=== PATIENT | female | born 1980 | race Caucasian/White ===

== ENCOUNTER 2020-12-14 09:39 | Inpatient (IN) ==
--- NOTE | 2020-12-14 10:03 | Emergency Department Note ---
Impression & Plan Acute hypoxemic respiratory failure, CHF (congestive heart failure), Down syndrome, Pulmonary HTN, KIRTI (acute kidney injury), Acute urinary retention ED Provider Note NAME: SUNDAR MATTHEWS AGE: 40 SEX: F : 1980 ARRIVES VIA: Walk-In INFORMANT: Patient, ED PROVIDER(S): Naun Winn MD Chief Complaint: Shortness of breath HPI: Patient does present with the patient's father due to concern for shortness of breath. The patient does have a known history of Down syndrome, CHF and pulmonary hypertension. She does follow with the internal control specialist at [facility] Dr.'s Gomez as well as Dr. Del Valle with [facility]. The patient has had an unproductive cough but it seems to be Oneal where she cannot bring it up. The patient has been increasing her oxygen from just at nighttime to 3 L almost at all times. Increasingly exertional dyspnea. The patient has been compliant with medications. Patient does have prior history of aspiration pneumonia. Patient symptoms of gotten progressively worse are relatively constant and even present at rest but worse with activity. ROS: See HPI for pertinent positives and negatives. A total of 10 systems were reviewed and otherwise negative. Past medical history: See below Surgical history: See below Social history: See below Physical Exam: GENERAL: Wearing glasses, nasal cannula in place, mildly ill in appearance. EYE EXAM: Normal conjunctiva. PERRL, no anisocoria and EOM's grossly intact w/o pain. NECK: Supple, no nuchal rigidity, no adenopathy, non-tender. No signs of meningismus. LUNGS: Bibasilar crackles. Tachypnea noted. HEART: NSR, no MRG. ABDOMEN: Abdomen soft, non-tender, normo-active bowel sounds, no masses, no rebound or guarding. BACK: No CVA TTP. SKIN: No rashes and no bruising. UPPER EXTREMITIES: Upper extremities are grossly normal. LOWER EXTREMITIES: Grossly normal, no edema. Negative Homans' sign bilaterally NEURO EXAM: A&O x3, cranial nerves II-XII grossly intact, normal speech, moves all 4 extremities on command w/o issue. Differential diagnoses: Reactive airway disease, pneumonia, pneumothorax, COPD, CHF, infections, cardiac ischemia, pulmonary embolism, musculoskeletal, gastrointestinal, as well as other pathologies. Course: Patient was seen and evaluated the bedside. Full history physical exam was performed. EKG interpreted by me Normal sinus rhythm, rate of 85, normal intervals, right axis deviation, n onspecific T wave abnormality without significant change from comparison EKG July 12, 2018 Imaging Studies: See below Cardiac monitoring: An order was placed for continuous cardiac monitoring. The monitor shows a rate of 66 with sinus rhythm. MDM: Patient was seen due to concern for shortness of breath. Blood work was obtained along with Zosyn ordered, MRSA swab and cultures. The patient was placed on BiPAP as I believe that this will improve with the patient's respiratory effort. Per the father the patient is on chronic oxygen but runs anywhere from the mid 80s to low 90s. Patient has had increase in her oxygen use. Patient's daughter shows a mild white count mild anemia at 1111.3 respectively. The patient's kidney function is grossly changed from prior with KIRTI from baseline creat less than 1. Today is 2.3. Chest x-ray does show concern for possible volume overload. VBG does not show any hypercarbia. I did further discuss that patient with the father stated that she does suffer from urinary retention. Bladder scan was ordered and the patient is greater than 1 L of retention. Given that this may be the cause of the KIRTI I did recommend that a Bernal be placed. I did speak with the patient's primary pulmonology specialist at [facility], Dr. Garrett, who did recommend continuing her current tadalafil and macitentan therapy. He also recommended a BNP and an echocard iogram. I did discuss this with the on-call hospitalist HARINDER Barrios and the patient was admitted by Dr. Mcclellan. Patient does seem to have improved on the BiPAP. I did rediscuss the findings with the patient's family at bedside who is in agreement with plan of care. Critical Care: I have personally spent 77 minutes of critical care time in direct management of this patient. This includes bedside care, interpretation of diagnostic studies, and testing, discussion with consultants, patient, and family members, and other require inpatient management activities. This 77 minutes is in excess of all separately billable procedures. Past Med/Surg History Medical History Aspiration pneumonia Down syndrome Pulmonary HTN Surgical History History of heart surgery 1982: pulmonary artery banding and right lower lobectomy 1984: AVSD repair Family History Other Family history non-contributory Social History Smoking Status: Never smoker Hx Alcohol Use: No Hx Substance Use: No Preferred Language: Irish Communication Ability: Effective Molder Sweep Required: No Beliefs That Will Affect Care: None Current Living Situation: Parent Feels Safe at Home: Yes Assistive Devices: Oxygen - Continuous Allergies Allergies Allergy/AdvReac Type Severity Reaction Status Date / Time Sulfa (Sulfonamide Allergy Unknown ` Verified 12/14/20 11:24 Antibiotics) Home Meds Home Medications Medication Instructions Recorded Confirmed multivitamin 1 tab PO QAM 07/10/18 12/14/20 fluticasone propionate [Flovent 1 inh INHALATION BID 12/14/20 12/14/20 Diskus] macitentan [Opsumit] 10 mg PO PM 12/14/20 12/14/20 omeprazole 20 mg PO PM 12/14/20 12/14/20 tadalafil (pulm. hypertension) 40 mg PO QAM 12/14/20 12/14/20 Previous Rx's Medication Instructions Recorded acetaminophen 650 mg PO Q4H PRN #100 cap 07/14/18 albuterol sulfate 2 puffs INH Q6H PRN #8 gm 07/14/18 Results & Data (ED) Vital Signs Vital Signs - 24 hr 12/14/20 09:41 12/14/20 10:00 12/14/20 10:20 Temperature 36.7 C Temperature Source Temporal Artery Scan Pulse Rate 102 H Pulse Rate from SpO2 Sensor Respiratory Rate 20 Respiratory Effort / Characteristics Non-Labored Spontaneous Labored Short of Breath Blood Pressure 140/83 Blood Pressure Mean 102 Pulse Oximetry 86 L 85 L 94 Oxygen Delivery Method Nasal Cannula Nasal Cannula Oxygen Flow Rate 2 4.5 Fraction of Inspired Oxygen Sepsis Recent Fever Within 48 Hours No Sepsis New/Unexplained Change in Mental Status N/A Sepsis Action Taken by Nursing No Action Required Oxygen Flow Rate - Titration 4.5 Pulse Oximetry Post Tiitration 94 12/14/20 10:34 12/14/20 10:48 12/14/20 11:00 Temperature Temperature Source Pulse Rate 88 86 Pulse Rate from SpO2 Sensor 86 Respiratory Rate 34 H 24 Respiratory Effort / Characteristics Labored Spontaneous Blood Pressure Blood Pressure Mean Pulse Oximetry 89 L 93 91 Oxygen Delivery Method Nasal Cannula BiPAP Oxygen Flow Rate 3 Fraction of Inspired Oxygen 30 Sepsis Recent Fever Within 48 Hours Sepsis New/Unexplained Change in Mental Status Sepsis Action Taken by Nursing Oxygen Flow Rate - Titration Pulse Oximetry Post Tiitration 12/14/20 11:10 12/14/20 11:20 12/14/20 11:30 Temperature Temperature Source Pulse Rate 72 72 77 Pulse Rate from SpO2 Sensor 73 72 77 Respiratory Rate 22 20 24 Respiratory Effort / Characteristics Blood Pressure Blood Pressure Mean Pulse Oximetry 90 91 93 Oxygen Delivery Method BiPAP BiPAP BiPAP Oxygen Flow Rate Fraction of Inspired Oxygen Sepsis Recent Fever Within 48 Hours Sepsis New/Unexplained Change in Mental Status Sepsis Action Taken by Nursing Oxygen Flow Rate - Titration Pulse Oximetry Post Tiitration 12/14/20 11:31 12/14/20 11:40 12/14/20 11:50 Temperature Temperature Source Pulse Rate 73 77 70 Pulse Rate from SpO2 Sensor 72 76 69 Respiratory Rate 24 22 21 Respiratory Effort / Characteristics Blood Pressure 131/72 Blood Pressure Mean 91 Pulse Oximetry 91 93 90 Oxygen Delivery Method BiPAP BiPAP BiPAP Oxygen Flow Rate Fraction of Inspired Oxygen Sepsis Recent Fever Within 48 Hours Sepsis New/Unexplained Change in Mental Status Sepsis Action Taken by Nursing Oxygen Flow Rate - Titration Pulse Oximetry Post Tiitration 12/14/20 12:00 12/14/20 12:01 12/14/20 12:10 Temperature Temperature Source Pulse Rate 72 69 70 Pulse Rate from SpO2 Sensor 72 68 69 Respiratory Rate 22 22 20 Respiratory Effort / Characteristics Blood Pressure 118/92 Blood Pressure Mean 100 Pulse Oximetry 91 91 93 Oxygen Delivery Method BiPAP BiPAP BiPAP Oxygen Flow Rate Fraction of Inspired Oxygen Sepsis Recent Fever Within 48 Hours Sepsis New/Unexplained Change in Mental Status Sepsis Action Taken by Nursing Oxygen Flow Rate - Titration Pulse Oximetry Post Tiitration 12/14/20 12:20 12/14/20 12:30 12/14/20 12:32 Temperature Temperature Source Pulse Rate 75 70 64 Pulse Rate from SpO2 Sensor 73 69 65 Respiratory Rate 24 18 18 Respiratory Effort / Characteristics Blood Pressure 142/83 H Blood Pressure Mean 102 Pulse Oximetry 93 94 91 Oxygen Delivery Method BiPAP BiPAP BiPAP Oxygen Flow Rate Fraction of Inspired Oxygen Sepsis Recent Fever Within 48 Hours Sepsis New/Unexplained Change in Mental Status Sepsis Action Taken by Nursing Oxygen Flow Rate - Titration Pulse Oximetry Post Tiitration 12/14/20 12:40 12/14/20 12:50 12/14/20 13:00 Temperature Temperature Source Pulse Rate 61 65 76 Pulse Rate from SpO2 Sensor 62 65 75 Respiratory Rate 18 22 19 Respiratory Effort / Characteristics Blood Pressure Blood Pressure Mean Pulse Oximetry 92 91 92 Oxygen Delivery Method BiPAP BiPAP BiPAP Oxygen Flow Rate Fraction of Inspired Oxygen Sepsis Recent Fever Within 48 Hours Sepsis New/Unexplained Change in Mental Status Sepsis Action Taken by Nursing Oxygen Flow Rate - Titration Pulse Oximetry Post Tiitration 12/14/20 13:01 12/14/20 13:12 12/14/20 13:20 Temperature Temperature Source Pulse Rate 78 93 H Pulse Rate from SpO2 Sensor 79 109 H 88 Respiratory Rate 22 24 Respiratory Effort / Characteristics Blood Pressure 107/70 Blood Pressure Mean 82 Pulse Oximetry 93 90 91 Oxygen Delivery Method BiPAP BiPAP BiPAP Oxygen Flow Rate Fraction of Inspired Oxygen Sepsis Recent Fever Within 48 Hours Sepsis New/Unexplained Change in Mental Status Sepsis Action Taken by Nursing Oxygen Flow Rate - Titration Pulse Oximetry Post Tiitration 12/14/20 13:30 12/14/20 13:31 12/14/20 13:40 Temperature Temperature Source Pulse Rate 82 83 79 Pulse Rate from SpO2 Sensor 82 84 80 Respiratory Rate 26 H 24 22 Respiratory Effort / Characteristics Blood Pressure 126/99 Blood Pressure Mean 108 Pulse Oximetry 96 95 95 Oxygen Delivery Method BiPAP BiPAP BiPAP Oxygen Flow Rate Fraction of Inspired Oxygen Sepsis Recent Fever Within 48 Hours Sepsis New/Unexplained Change in Mental Status Sepsis Action Taken by Nursing Oxygen Flow Rate - Titration Pulse Oximetry Post Tiitration 12/14/20 13:50 12/14/20 14:00 12/14/20 14:01 Temperature Temperature Source Pulse Rate 71 75 74 Pulse Rate from SpO2 Sensor 72 75 73 Respiratory Rate 22 22 22 Respiratory Effort / Characteristics Blood Pressure 123/86 Blood Pressure Mean 98 Pulse Oximetry 94 94 94 Oxygen Delivery Method BiPAP BiPAP BiPAP Oxygen Flow Rate Fraction of Inspired Oxygen Sepsis Recent Fever Within 48 Hours Sepsis New/Unexplained Change in Mental Status Sepsis Action Taken by Nursing Oxygen Flow Rate - Titration Pulse Oximetry Post Tiitration 12/14/20 14:10 12/14/20 14:20 Temperature Temperature Source Pulse Rate 66 Pulse Rate from SpO2 Sensor 67 Respiratory Rate 20 22 Respiratory Effort / Characteristics Non-Labored Blood Pressure Blood Pressure Mean Pulse Oximetry 91 92 Oxygen Delivery Method BiPAP BiPAP Oxygen Flow Rate Fraction of Inspired Oxygen Sepsis Recent Fever Within 48 Hours Sepsis New/Unexplained Change in Mental Status Sepsis Action Taken by Nursing Oxygen Flow Rate - Titration Pulse Oximetry Post Tiitration Home Medications Current Medication List: was personally reviewed by me Laboratory Data Attestation: I reviewed the patient's lab results. Result diagrams: 12/14/20 10:35 12/14/20 10:35 Lab Results 12/14/20 12/14/20 12/14/20 Range/Units 10:05 10:20 10:20 WBC (4.8-10.8) K/uL RBC (4.2-5.4) M/uL Hgb (12.0-16.0) g/dL Hct (37-47) % MCV (80-100) fL MCH (25-34) pg MCHC (32-36) g/dL RDW Std Deviation (36.4-46.3) fL RDW Coeff of Yeny (11.5-14.5) % Plt Count (130-400) K/uL MPV (7.4-10.4) fL Immature Gran % (Auto) % Neut % (Auto) % Lymph % (Auto) % [place] % (Auto) % Eos % (Auto) % Baso % (Auto) % Neut # (Auto) (1.4-6.5) K/uL Lymph # (Auto) (1.2-3.4) K/uL [place] # (Auto) (0.11-0.59) K/uL Eos # (Auto) (0-0.5) K/uL Baso # (Auto) (0-0.2) K/uL Immature Gran # (Auto) (0.00-0.02) K/uL PT (9.0-12.0) Seconds INR (0.9-1.1) APTT (21.0-31.0) Seconds PTT Ratio VBG pH (7.36-7.41) VBG pCO2 (38-50) mmHg VBG pO2 mmHg VBG HCO3 mmol/L VBG O2 Saturation % VBG Base Excess mEq/L Barometric Pressure mm/Hg Sodium (136-145) mmol/L Potassium (3.5-5.1) mmol/L Chloride (98-107) mmol/L Carbon Dioxide (21-32) mmol/L Anion Gap (3-11) BUN (7-18) mg/dl Creatinine (0.6-1.2) mg/dl Est Cr Clr Drug Dosing ml/min Est GFR ( Amer) ml/min Est GFR (Non-Af Amer) ml/min BUN/Creatinine Ratio (10-20) Glucose (70-99) mg/dl Lactate (0.4-2.0) mmol/L Calcium (8.5-10.1) mg/dl Magnesium (1.8-2.4) mg/dl Total Bilirubin (0.2-1) mg/dl AST (15-37) U/L ALT (12-78) U/L Alkaline Phosphatase (45-117) U/L Troponin I (0-0.045) ng/ml NT-Pro-B Natriuret Pep (0-450) pg/ml Total Protein (6.4-8.2) gm/dl Albumin (3.4-5.0) gm/dl Globulin (2.5-4.0) gm/dl Albumin/Globulin Ratio (0.9-2) Procalcitonin (0-0.5) ng/ml Urine Color Yellow Urine Appearance Clear (Clear) Urine pH 5.0 (4.5-7.5) Ur Specific [place] 1.010 (1.000-1.030) Urine Protein Negative (Negative) Urine Glucose (UA) Negative (Negative) Urine Ketones Negative (Negative) Urine Blood Negative (Negative) Urine Nitrite Negative (Negative) Urine Bilirubin Negative (Negative) Urine Urobilinogen Negative (Negative) Ur Leukocyte Esterase 2+ H (Negative) Urine RBC 0-4 (0-4) /hpf Urine WBC >30 H (0-5) /hpf Ur Epithelial Cells >30 H (0-5) /lpf Urine Bacteria 1+ H (Negative) Nasal Screen MRSA (PCR) Negative (Negative) COVID-19 Eval Order Covid19 at [facility] SARS-CoV-2 (PCR) (Negative) 12/14/20 12/14/20 12/14/20 Range/Units 10:20 10:35 10:35 WBC 11.00 H (4.8-10.8) K/uL RBC 3.72 L (4.2-5.4) M/uL Hgb 11.3 L (12.0-16.0) g/dL Hct 33.8 L (37-47) % MCV 90.9 (80-100) fL MCH 30.4 (25-34) pg MCHC 33.4 (32-36) g/dL RDW Std Deviation 51.2 H (36.4-46.3) fL RDW Coeff of Yeny 15.3 H (11.5-14.5) % Plt Count 192 (130-400) K/uL MPV 10.4 (7.4-10.4) fL Immature Gran % (Auto) 1.7 % Neut % (Auto) 80.6 % Lymph % (Auto) 10.9 % Pima % (Auto) 6.5 % Eos % (Auto) 0.1 % Baso % (Auto) 0.2 % Neut # (Auto) 8.87 H (1.4-6.5) K/uL Lymph # (Auto) 1.20 (1.2-3.4) K/uL [place] # (Auto) 0.71 H (0.11-0.59) K/uL Eos # (Auto) 0.01 (0-0.5) K/uL Baso # (Auto) 0.02 (0-0.2) K/uL Immature Gran # (Auto) 0.19 H (0.00-0.02) K/uL PT 11.1 (9.0-12.0) Seconds INR 1.1 (0.9-1.1) APTT 28.7 (21.0-31.0) Seconds PTT Ratio 1.1 VBG pH (7.36-7.41) VBG pCO2 (38-50) mmHg VBG pO2 mmHg VBG HCO3 mmol/L VBG O2 Saturation % VBG Base Excess mEq/L Barometric Pressure mm/Hg Sodium (136-145) mmol/L Potassium (3.5-5.1) mmol/L Chloride (98-107) mmol/L Carbon Dioxide (21-32) mmol/L Anion Gap (3-11) BUN (7-18) mg/dl Creatinine (0.6-1.2) mg/dl Est Cr Clr Drug Dosing ml/min Est GFR ( Amer) ml/min Est GFR (Non-Af Amer) ml/min BUN/Creatinine Ratio (10-20) Glucose (70-99) mg/dl Lactate (0.4-2.0) mmol/L Calcium (8.5-10.1) mg/dl Magnesium (1.8-2.4) mg/dl Total Bilirubin (0.2-1) mg/dl AST (15-37) U/L ALT (12-78) U/L Alkaline Phosphatase (45-117) U/L Troponin I (0-0.045) ng/ml NT-Pro-B Natriuret Pep (0-450) pg/ml Total Protein (6.4-8.2) gm/dl Albumin (3.4-5.0) gm/dl Globulin (2.5-4.0) gm/dl Albumin/Globulin Ratio (0.9-2) Procalcitonin (0-0.5) ng/ml Urine Color Urine Appearance (Clear) Urine pH (4.5-7.5) Ur Specific [place] (1.000-1.030) Urine Protein (Negative) Urine Glucose (UA) (Negative) Urine Ketones (Negative) Urine Blood (Negative) Urine Nitrite (Negative) Urine Bilirubin (Negative) Urine Urobilinogen (Negative) Ur Leukocyte Esterase (Negative) Urine RBC (0-4) /hpf Urine WBC (0-5) /hpf Ur Epithelial Cells (0-5) /lpf Urine Bacteria (Negative) Nasal Screen MRSA (PCR) (Negative) COVID-19 Eval Order SARS-CoV-2 (PCR) NEGATIVE (Negative) 12/14/20 12/14/20 12/14/20 Range/Units 10:35 10:35 10:35 WBC (4.8-10.8) K/uL RBC (4.2-5.4) M/uL Hgb (12.0-16.0) g/dL Hct (37-47) % MCV (80-100) fL MCH (25-34) pg MCHC (32-36) g/dL RDW Std Deviation (36.4-46.3) fL RDW Coeff of Yeny (11.5-14.5) % Plt Count (130-400) K/uL MPV (7.4-10.4) fL Immature Gran % (Auto) % Neut % (Auto) % Lymph % (Auto) % [place] % (Auto) % Eos % (Auto) % Baso % (Auto) % Neut # (Auto) (1.4-6.5) K/uL Lymph # (Auto) (1.2-3.4) K/uL [place] # (Auto) (0.11-0.59) K/uL Eos # (Auto) (0-0.5) K/uL Baso # (Auto) (0-0.2) K/uL Immature Gran # (Auto) (0.00-0.02) K/uL PT (9.0-12.0) Seconds INR (0.9-1.1) APTT (21.0-31.0) Seconds PTT Ratio VBG pH (7.36-7.41) VBG pCO2 (38-50) mmHg VBG pO2 mmHg VBG HCO3 mmol/L VBG O2 Saturation % VBG Base Excess mEq/L Barometric Pressure mm/Hg Sodium 143 (136-145) mmol/L Potassium 3.5 (3.5-5.1) mmol/L Chloride 112 H (98-107) mmol/L Carbon Dioxide 24 (21-32) mmol/L Anion Gap 7.0 (3-11) BUN 37 H (7-18) mg/dl Creatinine 2.37 H (0.6-1.2) mg/dl Est Cr Clr Drug Dosing 26.0 ml/min Est GFR ( Amer) 28.8 ml/min Est GFR (Non-Af Amer) 24.8 ml/min BUN/Creatinine Ratio 15.6 (10-20) Glucose 122 H (70-99) mg/dl Lactate 1.3 (0.4-2.0) mmol/L Calcium 8.3 L (8.5-10.1) mg/dl Magnesium 2.6 H (1.8-2.4) mg/dl Total Bilirubin 0.7 (0.2-1) mg/dl AST 17 (15-37) U/L ALT 22 (12-78) U/L Alkaline Phosphatase 187 H (45-117) U/L Troponin I 0.032 (0-0.045) ng/ml NT-Pro-B Natriuret Pep (0-450) pg/ml Total Protein 6.7 (6.4-8.2) gm/dl Albumin 3.0 L (3.4-5.0) gm/dl Globulin 3.7 (2.5-4.0) gm/dl Albumin/Globulin Ratio 0.8 L (0.9-2) Procalcitonin 0.38 (0-0.5) ng/ml Urine Color Urine Appearance (Clear) Urine pH (4.5-7.5) Ur Specific [place] (1.000-1.030) Urine Protein (Negative) Urine Glucose (UA) (Negative) Urine Ketones (Negative) Urine Blood (Negative) Urine Nitrite (Negative) Urine Bilirubin (Negative) Urine Urobilinogen (Negative) Ur Leukocyte Esterase (Negative) Urine RBC (0-4) /hpf Urine WBC (0-5) /hpf Ur Epithelial Cells (0-5) /lpf Urine Bacteria (Negative) Nasal Screen MRSA (PCR) (Negative) COVID-19 Eval Order SARS-CoV-2 (PCR) (Negative) 12/14/20 12/14/20 Range/Units 10:35 10:37 WBC (4.8-10.8) K/uL RBC (4.2-5.4) M/uL Hgb (12.0-16.0) g/dL Hct (37-47) % MCV (80-100) fL MCH (25-34) pg MCHC (32-36) g/dL RDW Std Deviation (36.4-46.3) fL RDW Coeff of Yeny (11.5-14.5) % Plt Count (130-400) K/uL MPV (7.4-10.4) fL Immature Gran % (Auto) % Neut % (Auto) % Lymph % (Auto) % [place] % (Auto) % Eos % (Auto) % Baso % (Auto) % Neut # (Auto) (1.4-6.5) K/uL Lymph # (Auto) (1.2-3.4) K/uL [place] # (Auto) (0.11-0.59) K/uL Eos # (Auto) (0-0.5) K/uL Baso # (Auto) (0-0.2) K/uL Immature Gran # (Auto) (0.00-0.02) K/uL PT (9.0-12.0) Seconds INR (0.9-1.1) APTT (21.0-31.0) Seconds PTT Ratio VBG pH 7.42 H (7.36-7.41) VBG pCO2 36 L (38-50) mmHg VBG pO2 55 mmHg VBG HCO3 23 mmol/L VBG O2 Saturation 89.9 % VBG Base Excess -1.3 mEq/L Barometric Pressure 742.0 mm/Hg Sodium (136-145) mmol/L Potassium (3.5-5.1) mmol/L Chloride (98-107) mmol/L Carbon Dioxide (21-32) mmol/L Anion Gap (3-11) BUN (7-18) mg/dl Creatinine (0.6-1.2) mg/dl Est Cr Clr Drug Dosing ml/min Est GFR ( Amer) ml/min Est GFR (Non-Af Amer) ml/min BUN/Creatinine Ratio (10-20) Glucose (70-99) mg/dl Lactate (0.4-2.0) mmol/L Calcium (8.5-10.1) mg/dl Magnesium (1.8-2.4) mg/dl Total Bilirubin (0.2-1) mg/dl AST (15-37) U/L ALT (12-78) U/L Alkaline Phosphatase (45-117) U/L Troponin I (0-0.045) ng/ml NT-Pro-B Natriuret Pep 2023 H (0-450) pg/ml Total Protein (6.4-8.2) gm/dl Albumin (3.4-5.0) gm/dl Globulin (2.5-4.0) gm/dl Albumin/Globulin Ratio (0.9-2) Procalcitonin (0-0.5) ng/ml Urine Color Urine Appearance (Clear) Urine pH (4.5-7.5) Ur Specific [place] (1.000-1.030) Urine Protein (Negative) Urine Glucose (UA) (Negative) Urine Ketones (Negative) Urine Blood (Negative) Urine Nitrite (Negative) Urine Bilirubin (Negative) Urine Urobilinogen (Negative) Ur Leukocyte Esterase (Negative) Urine RBC (0-4) /hpf Urine WBC (0-5) /hpf Ur Epithelial Cells (0-5) /lpf Urine Bacteria (Negative) Nasal Screen MRSA (PCR) (Negative) COVID-19 Eval Order SARS-CoV-2 (PCR) (Negative) Administered Medications Discontinued Medications Furosemide (Furosemide 40 Mg/4 Ml Vial) 40 mg IV NOW STA Stop: 12/14/20 12:29 Last Admin: 12/14/20 15:27 Dose: 40 mg Documented by: [id number] Furosemide (Furosemide 40 Mg/4 Ml Vial) Confirm Administered Dose 40 mg IV .STK- MED ONE Stop: 12/14/20 15:26 Last Admin: 12/14/20 15:27 Dose: Not Given Documented by: [id number] Sodium Chloride (Nss 1000ml) 1,000 mls @ 999 mls/hr IV .Q1H1M MAYRA Stop: 12/14/20 11:15 Last Admin: 12/14/20 11:38 Dose: Not Given Documented by: [id number] Piperacillin Sod/Tazobactam Sod (Zosyn) 4.5 gm in 120 mls @ 240 mls/hr IV NOW ONE Stop: 12/14/20 10:43 Last Infusion: 12/14/20 12:12 Dose: 0 mls/hr Documented by: [id number] Admin: 12/14/20 11:38 Dose: 240 mls/hr Documented by: [id number] Methylprednisolone (Methylprednisolone 40 Mg/Ml Vial) 40 mg IV NOW STA Stop: 12/14/20 10:15 Last Admin: 12/14/20 11:39 Dose: Not Given Documented by: [id number] Imaging Data Radiologist's Impression: Chest X-Ray 12/14/20 10:14 XR chest 1V portable HISTORY: 40 years-old Female SEPSIS acute sepsis COMPARISON: CTA chest 07/11/2018 TECHNIQUE: Portable AP view of the chest FINDINGS: Moderate enlargement of the cardiac silhouette. Pediatric sternotomy wires. Right-sided Bochdalek hernia. Pulmonary vascular congestion with interstitial coarsening, trace pleural effusions and bibasilar consolidation. Bilateral shoulder rotator cuff calcific tendinosis. Bones appear grossly intact. IMPRESSION: 1. Cardiomegaly with pulmonary vascular congestion and interstitial coarsening suggestive of pulmonary edema. 2. Trace pleural effusions. 3. Right-sided Bochdalek hernia with bibasilar opacities suggestive of atelectasis versus pneumonia. ACT 112: Negative or not required by law. The above report was generated using voice recognition software. It may contain grammatical, syntax or spelling errors. Electronically signed by: Kaleb Rose M.D. 12/14/2020 11:11 AM Discharge Plan Visit Data Chief Complaint: Shortness of Breath/Dyspnea Stated Complaint: BREATHING ISSUES, FAST HEART RATE ED Provider: Naun Winn Discharge Problem: Acute hypoxemic respiratory failure, CHF (congestive heart failure), Down syndrome, Pulmonary HTN, KIRTI (acute kidney injury), Acute urinary retention Forms Stand Alone Forms: [facility] [employer] Prescriptions Prescriptions: No Action multivitamin Tablet,Chewable 1 tab PO QAM RF: 0 acetaminophen 325 mg capsule 650 mg PO Q4H PRN (Reason: Fever Or Pain) Qty: 100 RF: 0 albuterol sulfate 90 mcg/actuation HFA aerosol inhaler 2 puffs INH Q6H PRN (Reason: shortness of breath or wheezing) Qty: 8 RF: 0 Flovent Diskus 100 mcg/actuation blister with device 1 inh INHALATION BID RF: 0 omeprazole 20 mg capsule,delayed release(DR/EC) 20 mg PO PM RF: 0 Opsumit 10 mg tablet 10 mg PO PM RF: 0 tadalafil (pulm. hypertension) 20 mg tablet 40 mg PO QAM RF: 0 Discharge Problem: CHF (congestive heart failure) Qualifiers: Heart failure type: unspecified Heart failure chronicity: unspecified Qualified Code(s): I50.9 - Heart failure, unspecified
[2020-12-14] MEDS ORDERED: PIPERACILL/TAZOBAC CONSULT ACTIVE PRN (10:14)
[2020-12-14] MEDS ORDERED: PIPERACILLIN/TAZOBACTAM 4.5 GM/120 ML BAG IV ONE (10:14)
[2020-12-14] MEDS ORDERED: SODIUM CHLORIDE 0.9% 1000ML 1,000 ML IV SCH (10:15)
[2020-12-14 10:26] LABS: Appearance Urine Clear (Clear); Bilirubin Urine Negative (Negative); Blood Urine Negative (Negative); Color Urine Yellow; Glucose Urine UA Negative (Negative); Ketones Urine Negative (Negative); Leukocyte Esterase Urine 2+ (Negative); Nitrite Urine Negative (Negative); Protein Urine Negative (Negative); Urobilinogen Urine Negative (Negative)
[2020-12-14 10:32] LABS: Epithelial Cell Urine >30 /lpf (0-5); WBC Urine >30 /hpf (0-5)
[2020-12-14 10:33] LABS: Bacteria Urine 1+ (Negative); RBC Urine 0-4 /hpf (0-4)
[2020-12-14 10:49] LABS: Basophils # (auto) 0.02 K/uL (0-0.2); Basophils % (auto) 0.2 %; Eosinophils # (auto) 0.01 K/uL (0-0.5); Eosinophils % (auto) 0.1 %; Hematocrit (blood only) 33.8 % (37-47); Hemoglobin 11.3 g/dL (12.0-16.0); Immature Granulocytes # (auto) 0.19 K/uL (0.00-0.02); Immature Granulocytes % (auto) 1.7 %; Lymphocytes % (auto) 10.9 %; Mean Corpuscular Hemoglobin 30.4 pg (25-34); Mean Corpuscular Hgb Conc 33.4 g/dL (32-36); Mean Corpuscular Volume 90.9 fL (80-100); Mean Platelet Volume 10.4 fL (7.4-10.4); Monocytes # (auto) 0.71 K/uL (0.11-0.59); Monocytes % (auto) 6.5 %; Neutrophils # (auto) 8.87 K/uL (1.4-6.5); Neutrophils % (auto) 80.6 %; Platelet Count 192 K/uL (130-400); RDW Coefficient of Variation 15.3 % (11.5-14.5); RDW Standard Deviation 51.2 fL (36.4-46.3); Red Blood Count 3.72 M/uL (4.2-5.4)
[2020-12-14 10:51] LABS: Base Excess VBG -1.3 mEq/L; Oxygen Saturation VBG 89.9 %; pH VBG 7.42 (7.36-7.41)
[2020-12-14 11:00] LABS: INR 1.1 (0.9-1.1); Partial Thromboplastin Ratio 1.1; Partial Thromboplastin Time 28.7 Seconds (21.0-31.0); Prothrombin Time 11.1 Seconds (9.0-12.0)
[2020-12-14 11:08] LABS: BUN Creatinine Ratio 15.6 (10-20); Calcium 8.3 mg/dl (8.5-10.1); Est GFR (African American) 28.8 ml/min; Est GFR (Non-African American) 24.8 ml/min; Magnesium 2.6 mg/dl (1.8-2.4); Potassium 3.5 mmol/L (3.5-5.1)
[2020-12-14 11:12] LABS: Albumin Globulin Ratio 0.8 (0.9-2); Bilirubin,Total 0.7 mg/dl (0.2-1); Globulin 3.7 gm/dl (2.5-4.0); Total Protein 6.7 gm/dl (6.4-8.2); Troponin I 0.032 ng/ml (0-0.045)
--- NOTE | 2020-12-14 11:13 | XRay Report ---
XR chest 1V portable HISTORY: 40 years-old Female SEPSIS acute sepsis COMPARISON: CTA chest 07/11/2018 TECHNIQUE: Portable AP view of the chest FINDINGS: Moderate enlargement of the cardiac silhouette. Pediatric sternotomy wires. Right-sided Bochdalek her krissy. Pulmonary vascular congestion with interstitial coarsening, trace pleural effusions and bibasila r consolidation. Bilateral shoulder rotator cuff calcific tendinosis. Bones appear grossly intact. IMPRESSION: 1. Cardiomegaly with pulmonary vascular congestion and interstitial coarsening suggestive of pulmonar y edema. 2. Trace pleural effusions. 3. Right-sided Bochdalek hernia with bibasilar opacities suggestive of atelectasis versus pneumonia. ACT 112: Negative or not required by law. The above report was generated using voice recognition software. It may contain grammatical, syntax o r spelling errors. Electronically signed by: Kaleb Rose M.D. 12/14/2020 11:11 AM
[2020-12-14] MEDS ORDERED: FUROSEMIDE 40 MG/4 ML VIAL IV STA (12:28)
--- NOTE | 2020-12-14 12:56 | Electrocardiogram Report ---
Test Reason : Blood Pressure : / mmHG Vent. Rate : 085 BPM Atrial Rate : 085 BPM P-R Int : 122 ms QRS Dur : 078 ms QT Int : 382 ms P-R-T Axes : 027 081 023 degrees QTc Int : 454 ms Normal sinus rhythm Nonspecific T wave abnormality Abnormal ECG When compared with ECG of 12-JUL-2018 07:23, No significant change was found Confirmed by Neymar Saldivar ([id number]) on 12/14/2020 12:56:04 PM Referred By: REFERRED SELF Confirmed By:Gilberto Saldivar
--- NOTE | 2020-12-14 14:16 | Urology Consultation ---
Date of Consultation December 14, 2020 Assessment & Plan (1) Urinary retention: (2) Meatal stenosis: 40 year-old female patient, with history of Down Syndrome, admitted with shortness of breath, hypoxia, and CHF. -Urology consulted for urinary retention with history of difficult shaw catheter placement. -Patient examined with Dr. Hoff. -She is afebrile. -Labs reviewed - white count mildly elevated, creatinine elevated at 2.37. -Urine culture pending, await final and treat if indicated. -Reviewed HUE report completed on 12/07/20 - notable for moderate bilateral hydronephrosis and distended bladder with PVR 811 ml. -Recommended shaw catheter placement, obtained verbal consent from patient's father. -Shaw catheter insertion was complicated by considerable meatal stenosis. After multiple attempts, a 12F catheter was placed. -Strongly recommend maintaining shaw catheter until she is further evaluated by female urologist/pediatric urologist given anatomical anomaly. -Recommend continued monitoring and supportive care. -Will continue to follow while inpatient. Supervising Physician Co-Signing Physician Notes Pt had what appeared to be 3 separate meatus openings and the true meatus was extremely tight and only accepted a 12 shaw after multiple attempts and was extremely tight .Difficult shaw placement . History of Present Illness Reason for Consultation: Urinary retention History of Present Illness 40 year-old female patient, with past medical history of pulmonary HTN, aspiration pneumonia, and Down Syndrome, presented to the emergency room with complaints of shortness of breath and tachycardia. Patient being admitted to hospital medicine for concern for exacerbation of CHF. Urology consulted for evaluation of urinary retention. Patient known to Dr. Mcgovern, with [facility] urology. Does have history of difficult catheter placement when she developed acute urinary retention after cardiac procedure in October 2019. Most recent office visit with Dr. Mcgovern was on 11/29 - PVR was elevated at that time at 773 ml. A renal ultrasound was ordered as outpatient after that visit and completed on 12/07/20. Report from HUE reviewed - moderate bilateral hydronephrosis with distended bladder and PVR of 811. Chart review: Patient afebrile. Wbc 11.0 Hgb 11.3 Creatinine 2.37 (previous level in chart of 0.57 in 06/2018). Urinalysis on admission +2 leukocytes, 0-4 rbc, >30 wbc, >30 epithelial cells, +1 bacteria. Urine culture pending. Blood cultures pending. Patient received IV Zosyn in ER. Imaging as above. Patient seen and examined with Dr. Hoff. Her father is at bedside. Patient for the past several weeks have been having more difficulty voiding. Per her father, has been going frequently. Denies dysuria or hematuria. At present, patient reports she has urgency and bladder pain. She feels like she has to urinate but only goes small amounts. Her father believes she had a fever yesterday, unsure of exact temperature. Denies nausea or vomiting. Per Dr. Mcgovern's last office note, discussion of suprapubic catheter would take place if she had any upper tract changes on her most recent ultrasound. It was also recommended that she complete urodynamics at [facility] to assess for weak detrusor. Per her father, the last time she had a catheter, it was traumatic for the patient. He is agreeable to allow cathter placement in ER today. Denies additional urologic concerns today. Allergies Allergy/AdvReac Type Severity Reaction Status Date / Time Sulfa (Sulfonamide Allergy Unknown ` Verified 12/14/20 11:24 Antibiotics) Home Medications Medication Instructions Recorded Confirmed Type multivitamin 1 tab PO QAM 07/10/18 12/14/20 History acetaminophen 650 mg PO Q4H PRN #100 cap 07/14/18 12/14/20 Rx albuterol sulfate 2 puffs INH Q6H PRN #8 gm 07/14/18 12/14/20 Rx Flovent Diskus 1 inh INHALATION BID 12/14/20 12/14/20 History Opsumit 10 mg PO PM 12/14/20 12/14/20 History omeprazole 20 mg PO PM 12/14/20 12/14/20 History tadalafil (pulm. hypertension) 40 mg PO QAM 12/14/20 12/14/20 History furosemide 20 mg PO MOWEFR #30 tab 12/19/20 Rx potassium chloride 10 meq PO .mwf #30 tab 12/19/20 Rx spironolactone 12.5 mg PO MOWEFR #30 tab 12/19/20 Rx Patient History Medical History Asthma Chronic respiratory failure with hypoxia Down syndrome Pulmonary HTN Surgical History History of heart surgery 1981: pulmonary artery banding and right lower lobectomy 1983: AVSD repair Family History Other Family history non-contributory Social History Smoking Status: Never smoker Hx Alcohol Use: No Hx Substance Use: No Preferred Language: Yakut Communication Ability: Effective Associate Java Developer Required: No Beliefs That Will Affect Care: None Current Living Situation: Parent Feels Safe at Home: Yes Assistive Devices: Glasses and Oxygen - Continuous Review of Systems Constitutional: as per Subjective / HPI and + fever; no chills Eyes: no problem reported Ear, Nose, Mouth, Throat: no problem reported Respiratory: as per Subjective / HPI; no dyspnea Cardiovascular: as per Subjective / HPI Gastrointestinal: as per Subjective / HPI Genitourinary: as per Subjective / HPI Musculoskeletal: no back pain Neurologic: no problem reported Physical Exam Constitutional: well developed, well nourished, cooperative and comfortable; no acute distress ENMT: Ears: no external ear abnormality Nose: no external nose abnormality Neck: normal visual inspection and trachea midline Respiratory: normal respiratory effort; no respiratory distress and no audible wheezes Patient on BIPAP at time of exam. Cardiovascular: Extremities: no calf tenderness Gastrointestinal (Abdomen): Inspection/Auscultation: abdomen normal to inspection and + abdomen distended (Mildly distended) Percussion/Palpation: abdomen soft; abdomen nontender and no guarding Musculoskeletal: Moves all extremities without difficulty. Skin: No visible rashes, lesions, or wounds noted. Neurologic: moves all extremities and awake Psychiatric: Orientation: alert, oriented x 3 and cooperative Affect: euthymic affect Genitourinary: no CVA tenderness On exam, patient appears to have three different openings above hymen. Attempted to insert 16F shaw catheter into medial opening x2, met with resistance. Dr. Hoff then attempted as well. After multiple attempts with a 12F shaw catheter, a pediatric straight cath specimen kit was used to get urine return. A final attempt with a 12F catheter was made and inserted successfully. Patient tolerated procedure well given situation. Roughly 800 cc urine return initially with shaw catheter insertion and continued to drain upon leaving. Results & Data ([facility]) Vital Signs (Past 12 Hours) Vital Signs Temp Pulse Resp BP Pulse Ox 12/14/20 12:10 70 20 93 12/14/20 12:01 69 22 91 12/14/20 12:00 72 22 118/92 91 12/14/20 11:50 70 21 90 12/14/20 11:40 77 22 93 12/14/20 11:31 73 24 131/72 91 12/14/20 11:30 77 24 93 12/14/20 11:20 72 20 91 12/14/20 11:10 72 22 90 12/14/20 11:00 86 24 91 12/14/20 10:48 88 34 H 93 12/14/20 10:34 89 L 12/14/20 10:20 94 12/14/20 10:00 85 L 12/14/20 09:41 36.7 C 102 H 20 140/83 86 L PG Care Time/CCT Total # of Minutes Spent Total Time Spent with Patient: Total time spent is greater than 50% in coordination of care (as documented) at patient's floor/unit and/or counseling patient: Coding Level of Care Code 16483 Inpt Consult Level 3 Diagnoses Urinary retention R33.9 Meatal stenosis
[2020-12-14] MEDS ORDERED: FUROSEMIDE 40 MG/4 ML VIAL IV ONE (15:25)
[2020-12-14] MEDS ORDERED: ACETAMINOPHEN 325 MG TAB PO PRN (15:56)
--- NOTE | 2020-12-14 16:00 | History & Physical Report ---
Date of Service December 14, 2020 Assessment & Plan (1) Acute on chronic respiratory failure with hypoxia: (2) Acute right-sided CHF (congestive heart failure): (3) Pulmonary HTN: -Admit to telemetry -Patient presenting from home with increased shortness of breath and hypoxia -In the ED, found to be hypoxic on room air at 85%. Placed on BiPAP. Typically wears 2 L of oxygen with exertion and at sleep. -CXR shows signs of pulmonary edema -History of severe pulmonary hypertension, follows with specialist at [facility] - Dr. Archie Garrett [phone] - ED discussed with Dr. Garrett who recommends trialing Lasix 40 mg IV and continuing tadalafil and macitentan -Echo -Cardiology consult (4) KIRTI (acute kidney injury): -Creatinine 2.3 (baseline 0.7) -Patient with history of ongoing urinary retention, KIRTI likely secondary to obstructive uropathy -Bernal placed -Monitor renal functions closely while diuresing (5) Urinary retention: -History of ongoing urinary retention, follows with [facility] urology -Recent outpatient renal ultrasound shows signs of bilateral hydronephrosis -Urology evaluated the patient in the ED and was able to place a 12 [place] Bernal catheter after multiple attempts, recommend leaving in place until outpatient follow-up (6) Asthma: -No wheezing on exam -Continue home inhalers (7) DVT prophylaxis: -SQ heparin History of Present Illness Chief Complaint: Shortness of breath Primary Care Provider: Lv Michaels MD 40-year-old female with PMH Down syndrome, pulmonary hypertension, asthma, s/p ASD repair as a child, chronic hypoxic respiratory failure, and other problems listed below who presents the ED for evaluation of shortness of breath. Patient's father is the bedside who provides some history. Reports that he is noted increased work of breathing over the past couple of days. Overnight, patient was diaphoretic and appeared to be more short of breath. She wears oxygen 2 L with exertion and during sleep. Per father, patient was hypoxic in the 70s. He increased her oxygen to 4 L with little improvement. Patient was then brought to the ED for further evaluation. Patient has been having ongoing issues with urinary retention and has been following closely with urology. History is limited from the patient, no other symptoms reported by the father. In the ED, patient was hypoxic 85%, she was placed on BiPAP. CXR is suggestive of pulmonary edema. Patient was bladder scanned her for 1000 cc, PVR 50 cc. Urology was consulted and placed Bernal catheter. Patient was given IV Zosyn, IV Lasix 40 mg. Allergies Allergy/AdvReac Type Severity Reaction Status Date / Time Sulfa (Sulfonamide Allergy Unknown ` Verified 12/14/20 11:24 Antibiotics) Home Medications Medication Instructions Recorded Confirmed Type multivitamin 1 tab PO QAM 07/10/18 12/14/20 History acetaminophen 650 mg PO Q4H PRN #100 cap 07/14/18 12/14/20 Rx albuterol sulfate 2 puffs INH Q6H PRN #8 gm 07/14/18 12/14/20 Rx fluticasone propionate [Flovent 1 inh INHALATION BID 12/14/20 12/14/20 History Diskus] macitentan [Opsumit] 10 mg PO PM 12/14/20 12/14/20 History omeprazole 20 mg PO PM 12/14/20 12/14/20 History tadalafil (pulm. hypertension) 40 mg PO QAM 12/14/20 12/14/20 History Past Med/Surg History Medical History Asthma Chronic respiratory failure with hypoxia Down syndrome Pulmonary HTN Surgical History History of heart surgery 1981: pulmonary artery banding and right lower lobectomy 1984: AVSD repair Family History Other Family history non-contributory Social History Smoking Status: Never smoker Hx Alcohol Use: No Hx Substance Use: No Preferred Language: Pashto Communication Ability: Effective Dumpster Driver Required: No Beliefs That Will Affect Care: None Current Living Situation: Parent Other Information That Helps Us Care for You: No Feels Safe at Home: Yes Safety Concerns: Feels Safe At This Time Assistive Devices: Oxygen - Continuous Review of Systems Review of Systems: Unobtainable due to cognitive status Physical Exam Constitutional: WD/WN, vitals as above Eyes: PERRL, conjunctivae normal, anicteric sclerae Respiratory: normal respiratory effort; no respiratory distress Auscultation: + diminished lung sounds On BiPAP Cardiovascular: Rate/Rhythm: regular rate and regular rhythm Vessels: normal peripheral pulses Extremities: no edema Gastrointestinal (Abdomen): normal bowel sounds, soft, nontender, no hep atosplenomegaly Musculoskeletal: no cyanosis or clubbing, extremities motor strength 5/5 Skin: no rashes, warm and dry Neurologic: PERRL, EOMI, accommodation nl, no face palsy, no dysarthria Psychiatric: Orientation: alert, oriented to person and cooperative Insight: + limited insight Results & Data Results & Data ([facility]) Vital Signs (Past 12 Hours) Vital Signs Temp Pulse Resp BP Pulse Ox 12/14/20 15:31 89 26 H 144/84 H 92 12/14/20 15:30 93 H 27 H 93 12/14/20 15:20 88 24 94 12/14/20 15:10 93 H 22 93 12/14/20 15:00 99 H 24 90 12/14/20 14:50 91 H 22 92 12/14/20 14:40 94 H 24 92 12/14/20 14:31 81 26 H 138/91 95 12/14/20 14:30 80 24 93 12/14/20 14:20 75 24 95 12/14/20 14:10 66 20 91 12/14/20 14:01 74 22 94 12/14/20 14:00 75 22 123/86 94 12/14/20 13:50 71 22 94 12/14/20 13:40 79 22 95 12/14/20 13:31 83 24 95 12/14/20 13:30 82 26 H 126/99 96 12/14/20 13:20 93 H 24 91 12/14/20 13:12 90 12/14/20 13:01 78 22 107/70 93 12/14/20 13:00 76 19 92 12/14/20 12:50 65 22 91 12/14/20 12:40 61 18 92 12/14/20 12:32 64 18 142/83 H 91 12/14/20 12:30 70 18 94 12/14/20 12:20 75 24 93 12/14/20 12:10 70 20 93 12/14/20 12:01 69 22 91 12/14/20 12:00 72 22 118/92 91 12/14/20 11:50 70 21 90 12/14/20 11:40 77 22 93 12/14/20 11:31 73 24 131/72 91 12/14/20 11:30 77 24 93 12/14/20 11:20 72 20 91 12/14/20 11:10 72 22 90 12/14/20 11:00 86 24 91 12/14/20 10:48 88 34 H 93 12/14/20 10:34 89 L 12/14/20 10:20 94 12/14/20 10:00 85 L 12/14/20 09:41 36.7 C 102 H 20 140/83 86 L Laboratory Results Short CBC 12/14/20 Range/Units 10:35 WBC 11.00 H (4.8-10.8) K/uL Hgb 11.3 L (12.0-16.0) g/dL Hct 33.8 L (37-47) % Plt Count 192 (130-400) K/uL BMP 12/14/20 10:35 Sodium 143 Potassium 3.5 Chloride 112 H Carbon Dioxide 24 BUN 37 H Creatinine 2.37 H Glucose 122 H Calcium 8.3 L Cardiac Enzymes 12/14/20 Range/Units 10:35 Troponin I 0.032 (0-0.045) ng/ml Liver Function 12/14/20 Range/Units 10:35 Total Bilirubin 0.7 (0.2-1) mg/dl AST 17 (15-37) U/L ALT 22 (12-78) U/L Alkaline Phosphatase 187 H (45-117) U/L Albumin 3.0 L (3.4-5.0) gm/dl Urine 12/14/20 Range/Units 10:05 Urine Color Yellow Urine Appearance Clear (Clear) Urine pH 5.0 (4.5-7.5) Ur Specific [place] 1.010 (1.000-1.030) Urine Protein Negative (Negative) Urine Glucose (UA) Negative (Negative) Diagnostic Findings Chest X-Ray 12/14/20 10:14 XR chest 1V portable HISTORY: 40 years-old Female SEPSIS acute sepsis COMPARISON: CTA chest 07/11/2018 TECHNIQUE: Portable AP view of the chest FINDINGS: Moderate enlargement of the cardiac silhouette. Pediatric sternotomy wires. Right-sided Bochdalek hernia. Pulmonary vascular congestion with interstitial coarsening, trace pleural effusions and bibasilar consolidation. Bilateral shoulder rotator cuff calcific tendinosis. Bones appear grossly intact. IMPRESSION: 1. Cardiomegaly with pulmonary vascular congestion and interstitial coarsening suggestive of pulmonary edema. 2. Trace pleural effusions. 3. Right-sided Bochdalek hernia with bibasilar opacities suggestive of atelectasis versus pneumonia. ACT 112: Negative or not required by law. The above report was generated using voice recognition software. It may contain grammatical, syntax or spelling errors. Electronically signed by: Kaleb Rose M.D. 12/14/2020 11:11 AM Code Status & VTE Plan VTE Prophylaxis Plan VTE Prophylaxis will be ordered: Yes Supervising Physician Co-Signing Physician Notes Physical Exam Gen-AAO x 3, NAD, Afebrile, on bipap, anxious Head-NCAT, EOMI, PERRLA, Anicteric Sclera, No Posterior Pharyngeal Erythema Neck-Supple, No JVD, No Thyromegaly, No Masses, No LAD, No Bruits Lungs-Clear to Auscultation Bilaterally, No Rales, No Rhonchi, No Wheezing, No Crepitus Chest-No S4, +S1, +S2, No S3, No Murmurs, No Rubs, No Gallops, No Ectopy Abdomen-Soft, Bowel Sounds Present, Non Tender, Non Distended, No Hepatomegaly, No Splenomegaly, No Palpable Masses, No Rebound, No Rigidity, No Guarding Musculoskeletal-Full Range of Motion Bilaterally, No CVAT Extremities-No Cyanosis, No Clubbing, No Edema Nuero-Cranial Nerves II-XII grossly intact, Motor WNL, DTRs WNL, Strength WNL, Non Focal Psych-pleasant
[2020-12-14] MEDS: HEPARIN SOD 5,000 UNIT/0.5 ML VIAL SQ SCH ×2 (16:59→22:39)
[2020-12-14] MEDS ORDERED: PANTOprazole 40 MG TAB PO SCH (21:00)
[2020-12-14] MEDS: OMEPRAZOLE 20 MG CAPCR PO SCH (21:40)
[2020-12-14] MEDS: OPSUMIT 10 MG PO SCH (21:41)
[2020-12-14 22:22] LABS: BUN Creatinine Ratio 17.6 (10-20); Blood Urea Nitrogen 30 mg/dl (7-18); Calcium 8.9 mg/dl (8.5-10.1); Carbon Dioxide 31 mmol/L (21-32); Chloride 105 mmol/L (98-107); Creatinine Clr Calc Pharmacy 36.7 ml/min; Est GFR (African American) 43.6 ml/min; Est GFR (Non-African American) 37.6 ml/min; Glucose 90 mg/dl (70-99); Magnesium 2.3 mg/dl (1.8-2.4); Potassium 3.1 mmol/L (3.5-5.1); Sodium 143 mmol/L (136-145)
[2020-12-14 22:27] LABS: Troponin I < 0.015 ng/ml (0-0.045)
[2020-12-14] MEDS ORDERED: POTASSIUM CHLORIDE CRTAB 20 MEQ TABCR PO STA (22:54)
[2020-12-15] MEDS: HEPARIN SOD 5,000 UNIT/0.5 ML VIAL SQ SCH ×3 (06:06→21:53)
[2020-12-15 06:10] LABS: Hemoglobin 12.2 g/dL (12.0-16.0); Mean Corpuscular Hemoglobin 30.3 pg (25-34); Mean Corpuscular Volume 91.8 fL (80-100); Mean Platelet Volume 10.2 fL (7.4-10.4); Platelet Count 212 K/uL (130-400); RDW Coefficient of Variation 15.3 % (11.5-14.5); RDW Standard Deviation 51.1 fL (36.4-46.3); Red Blood Count 4.03 M/uL (4.2-5.4); White Blood Count 8.39 K/uL (4.8-10.8)
[2020-12-15 06:52] LABS: BUN Creatinine Ratio 20.9 (10-20); Calcium 8.3 mg/dl (8.5-10.1); Est GFR (African American) 65.5 ml/min; Est GFR (Non-African American) 56.5 ml/min; Magnesium 2.4 mg/dl (1.8-2.4); Potassium 3.6 mmol/L (3.5-5.1)
--- NOTE | 2020-12-15 07:19 | Ultrasound Report ---
LEFT LOWER EXTREMITY VENOUS DOPPLER HISTORY: Left lower extremity cramping. COMPARISON STUDY: None. FINDINGS: There is normal compressibility, flow, and augmentation within the left lower extremity terrence p venous system. IMPRESSION: No DVT within the left lower extremity. ACT 112: Negative or not required by law. Electronically signed by: Tayo Daly M.D. 12/15/2020 7:17 AM
--- NOTE | 2020-12-15 08:12 | Urology Progress Note ---
Date of Service December 15, 2020 Assessment & Plan (1) Urinary retention: (2) Meatal stenosis: 40 year-old female patient, with history of Down Syndrome, admitted with shortness of breath, hypoxia, and CHF. -Urology consulted for urinary retention with history of difficult shaw catheter placement. -Patient remains afebrile. -Labs reviewed - white count normal, creatinine significantly improved status post catheter placement. -Urine culture pending, await final and treat if indicated. -HUE completed 12/07/20 - notable for moderate bilateral hydronephrosis and distended bladder. -Shaw catheter insertion yesterday was complicated by considerable meatal stenosis. After multiple attempts, a 12F catheter was placed. -Recommend continued monitoring and supportive care. -Strongly recommend maintaining shaw catheter until she is further evaluated by female urologist/pediatric urologist given anatomical anomaly. -Patient's father, Julien, updated via telephone on her clinical progress and recommendations this morning, he is agreeable with plan. -Thank you for allowing us to participate in the acute are of Ms. Anderson. Urology will sign off at this time. -Please reconsult us with additional questions, concerns or changes in patient status. Admission and Anticipated Discharge Date Admission Date: December 14, 2020 Subjective Patient seen and examined at bedside. She is awake, alert, and oriented. Does report she is doing "good" with shaw catheter. Shaw intact, draining clear yellow urine. Denies abdominal or flank pain. Denies hematuria. Denies bladder pain or pressure. Denies fevers or chills. Denies nausea or vomiting. Chart review: Afebrile. Wbc 8.39 (previously 11.0) Hgb 12.2 Creatinine 1.20 (2.37 on admission). Urine culture pending. Blood cultures pending. Patient not currently on antibiotic therapy. Denies additional urologic concerns today. Review of Systems Constitutional: as per Subjective / HPI; no fever and no chills Gastrointestinal: as per Subjective / HPI; no nausea and no vomiting Genitourinary: as per Subjective / HPI Physical Exam Constitutional: well developed, well nourished, cooperative and comfortable; no acute distress Non-toxic Respiratory: able to speak in complete sentences; no respiratory distress and no audible wheezes Currently on 5L via facial mask. Cardiovascular: Extremities: no calf tenderness Gastrointestinal (Abdomen): Inspection/Auscultation: abdomen normal to inspection; abdomen not distended Percussion/Palpation: abdomen soft; abdomen nontender and no guarding Psychiatric: Orientation: alert, oriented x 3 and cooperative Affect: + flat affect Genitourinary: no CVA tenderness Shaw catheter intact and patent. Shaw draining clear yellow urine. Results & Data ([facility]) Vital Signs (Past 12 Hours) Vital Signs Temp Pulse Pulse Resp BP Pulse Ox 12/15/20 07:16 36.4 C L 70 17 132/82 96 12/15/20 04:06 36.6 C 72 16 134/85 93 12/14/20 23:30 81 20 141/82 H 94 12/14/20 22:20 76 PG Care Time/CCT Total # of Minutes Spent Total Time Spent with Patient: Total time spent is greater than 50% in coordination of care (as documented) at patient's floor/unit and/or counseling patient: Coding Level of Care Code 38425 Subseq Hosp Care Lvl 2 Diagnoses Urinary retention R33.9 Meatal stenosis
[2020-12-15] MEDS: TADALAFIL 20 MG PO SCH (09:49)
[2020-12-15] MEDS: FLUTICASONE FUROATE 100MCG 14 PUFFS/INHALER INH SCH (09:49)
[2020-12-15] MEDS: POTASSIUM CHLORIDE CRTAB 20 MEQ TABCR PO SCH ×2 (09:49→20:06)
[2020-12-15] MEDS ORDERED: FUROSEMIDE 40 MG in SYRINGE 0 ML IV ONE (12:45)
--- NOTE | 2020-12-15 14:07 | Cardiology Consultation ---
Date of Consultation December 15, 2020 Assessment & Plan (1) Acute on chronic respiratory failure with hypoxia: Secondary to volume overload and acute renal failure. Significant diuresis achieved with placement of Bernal catheter to relieve obstruction. Continue to follow urine output augment with diuretic therapy as needed as needed to maintain adequate diuresis. Supplement potassium as needed. Patient clinically improving. (2) Status post atrioventricular septal defect repair: No evidence of residual shunt per echocardiogram. (3) Pulmonary HTN: Continue tadalafil, and macitentan as previously ordered. Continue IV diuresis. Continue negative fluid balance. (4) KIRTI (acute kidney injury): Creatinine trending downward with Bernal catheter placement. Daily BMP. (5) Acute urinary retention: Status post Bernal catheter placement. History of Present Illness Reason for Consultation: CHF, congenital heart disease Requesting Physician: Dr. Britton Attending Physician: Darwin Akesr MD History of Present Illness 40-year-old female with history of Down syndrome, ventricular septal defect status post repair during childhood, status post pulmonary artery banding, and severe pulmonary hypertension presents to the emergency department with shortness of breath. Found to have obstructive uropathy and acute renal failure on presentation. A Bernal catheter was placed with subsequent diuresis of more than 7 L since admission. She received a dose of Lasix in the ER as well as an additional dose this afternoon. Currently resting comfortably. Feeling better with diuretic therapy. Denies chest pain or shortness of breath. No palpitations, lightheadedness, or dizziness. Telemetry reviewed demonstrating sinus rhythm. She denies orthopnea, PND, or edema. Preliminary review of 2D transthoracic echocardiogram demonstrates indirect evidence of severe pulmonary hypertension with RV dilatation and septal flattening. Preserved LV systolic function without significant valvular pathology visualized. Allergies Allergy/AdvReac Type Severity Reaction Status Date / Time Sulfa (Sulfonamide Allergy Unknown ` Verified 12/14/20 11:24 Antibiotics) Home Medications Medication Instructions Recorded Confirmed Type multivitamin 1 tab PO QAM 07/10/18 12/14/20 History acetaminophen 650 mg PO Q4H PRN #100 cap 07/14/18 12/14/20 Rx albuterol sulfate 2 puffs INH Q6H PRN #8 gm 07/14/18 12/14/20 Rx fluticasone propionate [Flovent 1 inh INHALATION BID 12/14/20 12/14/20 History Diskus] macitentan [Opsumit] 10 mg PO PM 12/14/20 12/14/20 History omeprazole 20 mg PO PM 12/14/20 12/14/20 History tadalafil (pulm. hypertension) 40 mg PO QAM 12/14/20 12/14/20 History Patient History Medical History Asthma Chronic respiratory failure with hypoxia Down syndrome Pulmonary HTN Surgical History History of heart surgery 1982: pulmonary artery banding and right lower lobectomy 1984: AVSD repair Family History Other Family history non-contributory Social History Smoking Status: Never smoker Hx Alcohol Use: No Hx Substance Use: No Preferred Language: French Communication Ability: Effective Car Lubricator Required: No Beliefs That Will Affect Care: None Current Living Situation: Parent Other Information That Helps Us Care for You: No Feels Safe at Home: Yes Safety Concerns: Feels Safe At This Time Assistive Devices: Glasses and Oxygen - Continuous Review of Systems Review of Systems: All systems reviewed & are unremarkable except as noted in Subjective Physical Exam Constitutional: well nourished; no acute distress and not ill appearing Respiratory: normal respiratory effort; no respiratory distress and no labored breathing Auscultation: + diminished lung sounds (Bases bilateral) and + rales (Bases bilateral); no rhonchi and no wheezes Results & Data ([facility]) Vital Signs (Past 12 Hours) Vital Signs Temp Pulse Resp BP Pulse Ox 12/15/20 12:06 36.5 C 70 14 123/86 96 12/15/20 10:52 36.8 C 82 18 133/75 92 12/15/20 07:16 36.4 C L 70 17 132/82 96 12/15/20 04:06 36.6 C 72 16 134/85 93
--- NOTE | 2020-12-15 15:45 | Hospitalist Progress Note ---
Date of Service December 15, 2020 Assessment & Plan (1) Acute on chronic respiratory failure with hypoxia: (2) Acute right-sided CHF (congestive heart failure): (3) Pulmonary HTN: Present on admission with worsening SOB and hypoxia Oxygen saturation on admission 85 % on RA Typically wears 2 L of oxygen with exertion and at sleep. Pt was placed on BIPAP in the ER CXR showed Cardiomegaly with pulmonary vascular congestion and interstitial coarsening suggestive of pulmonary edema. Admitting discussed the case with [facility] specialist Dr. Archie Garrett ([phone]) that recommended trial Lasix 40 mg IV and continuing tadalafil and macitentan Will continue Lasix 40mg IV today Continue monitor I/O ECHO pending Cardiology on board recommended to continue Lasix IV for now Continue monitor BMP daily while on Lasix IV (4) KIRTI (acute kidney injury): Possible related to urinary retention Creatinine on admission 2.3 (baseline 0.7), Creatinine 1.2 today Continue monitor BMP (5) Urinary retention: History of ongoing urinary retention, follows with [facility] urology Shaw cath was placed in the ER by Urology after multiple attempts by nursing staff Urology on board Case discussed with urology that recommended to discharge with the shaw cath Follow up with urology outpatient in 1 to 2 weeks (6) Asthma: Symptomatic Continue home inhalers (7) DVT prophylaxis: SQ heparin Admission and Anticipated Discharge Date Admission Date: December 14, 2020 Subjective Pt was seen and examined for follow up of SOB Lying in bed with no distress just finished eating Pt said that her breathing is a lot better today Denies any chest pain, palpitation, dizziness and fever Review of Systems Review of Systems: All systems reviewed & are unremarkable except as noted in Subjective Physical Exam Physical Exam: General- No acute distress Head- atraumatic Eyes- PERRL, EOMI, ENT- oropharynx clear Neck- supple, no JVD Lungs- clear to auscultation Heart- regular rhythm; no murmur Abdomen- normal bowel sounds, soft, nontender Extremities- no calf tenderness Neuro- alert, awaked, PERRL, EOMI; no facial palsy; no dysarthria, follow commands Skin- warm & dry Results & Data Results & Data ([facility]) Vital Signs (Past 12 Hours) Vital Signs Temp Pulse Resp BP Pulse Ox 12/15/20 12:06 36.5 C 70 14 123/86 96 12/15/20 10:52 36.8 C 82 18 133/75 92 12/15/20 07:16 36.4 C L 70 17 132/82 96 12/15/20 04:06 36.6 C 72 16 134/85 93
[2020-12-15] MEDS: OPSUMIT 10 MG PO SCH (17:26)
[2020-12-15] MEDS: OMEPRAZOLE 20 MG CAPCR PO SCH (20:07)
[2020-12-16] MEDS ORDERED: POLYETHYLENE (MIRALAX) 17 GM PACK PO PRN (00:40)
[2020-12-16] MEDS: traMADol HCL 50 MG TABLET PO PRN ×2 (01:18→23:07)
[2020-12-16 03:02] LABS: Appearance Urine Clear (Clear); Bacteria Urine Automated Negative (Negative); Bilirubin Urine Negative (Negative); Blood Urine 3+ (Negative); Color Urine Yellow; Epithelial Cell Urine Auto >30 /lpf (0-5); Glucose Urine UA Negative (Negative); Ketones Urine Negative (Negative); Leukocyte Esterase Urine Trace (Negative); Nitrite Urine Negative (Negative); Protein Urine 4+ (Negative); RBC Urine Automated >30 /hpf (0-4); Specific Gravity Urine 1.018 (1.000-1.030); Urobilinogen Urine Negative (Negative)
[2020-12-16] MEDS: HEPARIN SOD 5,000 UNIT/0.5 ML VIAL SQ SCH ×3 (06:14→21:24)
[2020-12-16] MEDS: FLUTICASONE FUROATE 100MCG 14 PUFFS/INHALER INH SCH (08:25)
[2020-12-16] MEDS: TADALAFIL 20 MG PO SCH (08:27)
[2020-12-16] MEDS: POTASSIUM CHLORIDE CRTAB 20 MEQ TABCR PO SCH ×2 (08:27→20:08)
[2020-12-16] MEDS: DOCUSATE SODIUM/SENNA 50/8.6MG TAB PO SCH (08:30)
--- NOTE | 2020-12-16 09:45 | CT Scan Report ---
CT SCAN OF THE ABDOMEN AND PELVIS WITHOUT CONTRAST CLINICAL HISTORY: abd back pain COMPARISON STUDY: No previous studies for comparison. TECHNIQUE: CT scan of the abdomen and pelvis was performed from the lung bases to the proximal femurs . Images are reviewed in the axial, sagittal, and coronal planes. IV contrast was not administered fo r this examination. A dose lowering technique was utilized adhering to the principles of ALARA. CT DOSE: 499.29 mGy.cm FINDINGS: Lower chest: Infrahilar consolidative lesion with patent bronchi is seen within left lower lobe with surrounding ill-defined groundglass opacities. Patchy nodular and groundglass opacities are seen with in right base. Atelectasis is seen within right lower lobe. Diaphragmatic hernia is seen at the posterior right hemithorax. Liver: The unenhanced liver is normal in size, contour, and attenuation. There is no intrahepatic jose iary ductal dilatation. Gallbladder: Unremarkable. Spleen: Normal in size and attenuation. Pancreas: Unremarkable. Adrenal glands: Nodularity of the left adrenal gland. Right adrenal gland is not well seen. Kidneys: Moderate hydronephrosis seen bilaterally. Right kidney is herniate to the right lower chest region. No evidence of obstructive nephrolithiasis. Urinary bladder is enlarged with Bernal balloon wi thin its lumen. Prominent thickening of the urinary bladder wall and surrounding fat stranding likely represent inflammatory changes/cystitis. Evaluation is limited due to lack of IV contrast. Uterus and adnexa appear normal for age, evaluation is limited on this nondedicated nonenhanced exam. Bowel: The small bowel and colon are normal in course and caliber. Evaluation is limited due to lack of contrast. Appendix is not well seen. Peritoneum: There is no intraperitoneal free air or abdominal ascites. Vasculature: The abdominal aorta is normal in course and caliber. Adenopathy: None. Skeletal structures: Few Schmorl nodes are seen within the spine. IMPRESSION: 1. Consolidative and groundglass opacities within bilateral lower lungs likely represent multifocal pneumonia, however other etiology is also possible. Short-term follow-up in 4-6 weeks [address]contras t CT of the chest is recommended to document resolution. 2. Bilateral moderate hydronephrosis without obstructing nephrolithiasis. Urinary bladder is enlarge d with severe thickening of its wall and surrounding inflammatory changes. Differential diagnosis inc ludes cystitis versus other etiology. Further evaluation with ultrasound might be considered if clini arely indicated. ACT 112: Negative or not required by law. The above report was generated using voice recognition software. It may contain grammatical, syntax o r spelling errors. Electronically signed by: Maryjane Jacobs DO 12/16/2020 9:43 AM
[2020-12-16 09:46] LABS: BUN Creatinine Ratio 14.4 (10-20); Calcium 8.5 mg/dl (8.5-10.1); Creatinine Clr Calc Pharmacy 54.5 ml/min; Est GFR (African American) 72.7 ml/min; Est GFR (Non-African American) 62.8 ml/min; Potassium 3.5 mmol/L (3.5-5.1)
--- NOTE | 2020-12-16 12:06 | Cardiology Progress Note ---
Date of Service December 16, 2020 Assessment & Plan (1) Acute on chronic respiratory failure with hypoxia: Secondary to volume overload and acute renal failure. Significant diuresis achieved with placement of Bernal catheter to relieve obstruction. Urine output remains adequate with significant diuresis. No need for additional Lasix today. Continue to follow urine output augment with diuretic therapy as needed. Supplement potassium as needed. (2) Status post atrioventricular septal defect repair: No evidence of residual shunt per echocardiogram. (3) Pulmonary HTN: Continue tadalafil, and macitentan as previously ordered. Continue IV diuresis. Continue negative fluid balance. (4) KIRTI (acute kidney injury): Creatinine trending downward with Bernal catheter placement. Daily BMP. (5) Acute urinary retention: Status post Bernal catheter placement. Admission and Anticipated Discharge Date Admission Date: December 14, 2020 Subjective Patient seen and examined the bedside. Poor historian due to cognitive limitations. Denies chest pain or shortness of breath. No edema. Bernal catheter remains in place. Fluid balance -2.7 L. Renal function trending to baseline. Offers no complaints. Telemetry reveals sinus rhythm 70 bpm. Review of Systems Review of Systems: All systems reviewed & are unremarkable except as noted in Subjective Physical Exam Constitutional: well nourished; no acute distress and not ill appearing Respiratory: normal respiratory effort; no respiratory distress and no labored breathing Auscultation: + diminished lung sounds (Bases bilateral) and + rales (Bases bilateral); no rhonchi and no wheezes Cardiovascular: Rate/Rhythm: regular rhythm Heart Sounds: normal S1 and normal S2; no murmur Vessels: no JVD Extremities: no edema Gastrointestinal (Abdomen): Inspection/Auscultation: abdomen normal to inspection; abdomen not distended Percussion/Palpation: abdomen soft; abdomen nontender, no guarding and abdomen not rigid Neurologic: CN's II-XI intact bilaterally and moves all extremities; no focal motor deficits Motor/Sensory: no tremor Results & Data ([facility]) Vital Signs (Past 12 Hours) Vital Signs Temp Pulse Pulse Resp BP Pulse Ox 12/16/20 11:56 36.9 C 77 19 115/73 94 12/16/20 07:44 37 C 67 73 18 109/73 96 12/16/20 07:12 37.0 C 73 18 109/73
--- NOTE | 2020-12-16 16:44 | Hospitalist Progress Note ---
Date of Service December 16, 2020 Assessment & Plan (1) Acute on chronic respiratory failure with hypoxia: (2) Acute right-sided CHF (congestive heart failure): (3) Pulmonary HTN: Present on admission with worsening SOB and hypoxia Oxygen saturation on admission 85 % on RA Typically wears 2 L of oxygen with exertion and at sleep. Pt was placed on BIPAP in the ER CXR showed Cardiomegaly with pulmonary vascular congestion and interstitial coarsening suggestive of pulmonary edema. Admitting discussed the case with [facility] specialist Dr. Archie Garrett ([phone]) that recommended trial Lasix 40 mg IV and continuing tadalafil and macitentan Has been diuresis well. Cardio recommended to hold IV lasix today Continue monitor I/O ECHO flatten septum is consistent with RV pressure and volume overload. EF 60-65 % (4) KIRTI (acute kidney injury): Possible related to urinary retention Creatinine on admission 2.3 (baseline 0.7), Creatinine 1.1 today Continue monitor BMP (5) Urinary retention: History of ongoing urinary retention, follows with [facility] urology Shaw cath was placed in the ER by Urology after multiple attempts by nursing staff Urology on board Case discussed with urology that recommended to discharge with the shaw cath Follow up with urology outpatient in 1 to 2 weeks (6) Asthma: Symptomatic Continue home inhalers (7) DVT prophylaxis: SQ heparin Admission and Anticipated Discharge Date Admission Date: December 14, 2020 Subjective Pt was seen and examined for follow up of SOB Lying in bed with no distress Continue to require oxygen supplement Denies any chest pain, palpitation, dizziness and fever Review of Systems Review of Systems: All systems reviewed & are unremarkable except as noted in Subjective Physical Exam Physical Exam: General- No acute distress Head- atraumatic Eyes- PERRL, EOMI, ENT- oropharynx clear Neck- supple, no JVD Lungs- clear to auscultation Heart- regular rhythm; no murmur Abdomen- normal bowel sounds, soft, nontender Extremities- no calf tenderness Neuro- alert, awaked, PERRL, EOMI; no facial palsy; no dysarthria, follow commands Skin- warm & dry Results & Data Results & Data ([facility]) Vital Signs (Past 12 Hours) Vital Signs Temp Pulse Pulse Resp BP Pulse Ox 12/16/20 16:30 68 12/16/20 14:56 37.0 C 78 17 99/66 L 96 12/16/20 11:56 36.9 C 77 19 115/73 94 12/16/20 07:44 37 C 67 73 18 109/73 96 12/16/20 07:12 37.0 C 73 18 109/73
[2020-12-16] MEDS: OPSUMIT 10 MG PO SCH (16:52)
[2020-12-16] MEDS: OMEPRAZOLE 20 MG CAPCR PO SCH (20:08)
[2020-12-17] MEDS: HEPARIN SOD 5,000 UNIT/0.5 ML VIAL SQ SCH ×3 (06:39→22:30)
[2020-12-17] MEDS: FLUTICASONE FUROATE 100MCG 14 PUFFS/INHALER INH SCH (07:38)
[2020-12-17] MEDS: TADALAFIL 20 MG PO SCH (07:39)
[2020-12-17] MEDS: POTASSIUM CHLORIDE CRTAB 20 MEQ TABCR PO SCH ×2 (07:41→22:30)
[2020-12-17] MEDS: DOCUSATE SODIUM/SENNA 50/8.6MG TAB PO SCH (07:41)
[2020-12-17] MEDS ORDERED: FUROSEMIDE 20 MG in SYRINGE 0 ML IV ONE (11:15)
--- NOTE | 2020-12-17 14:02 | Cardiology Progress Note ---
Date of Service December 17, 2020 Assessment & Plan (1) Acute on chronic respiratory failure with hypoxia: Secondary to volume overload and acute renal failure. Significant diuresis achieved with placement of Bernal catheter to relieve obstruction. -Proceed with furosemide 20 mg IV x1 today. Continue potassium supplementation. (2) Status post atrioventricular septal defect repair: No evidence of residual shunt per echocardiogram. -RV pressure/volume overload physiology noted on echo, unchanged compared to previous outpatient. (3) Pulmonary HTN: Continue tadalafil, and macitentan as previously ordered. Continue IV diuresis. Continue negative fluid balance. (4) KIRTI (acute kidney injury): Creatinine trending downward with Bernal catheter placement. Basic met abolic panel ordered for tomorrow 12/18/2020. (5) Acute urinary retention: Status post Bernal catheter placement. -Urology input noted and appreciated. Meatal stenosis noted, however Bernal catheter placed successfully by urology. -Continue indwelling Bernal catheter. -Follow-up with urology as an outpatient. -We will need to clarify, if general urology will suffice, as compared to pediatric urology or rubber grinder/urology. Admission and Anticipated Discharge Date Admission Date: December 14, 2020 Subjective Patient seen in follow-up. Comfortable. No respiratory distress. Pulse oximetry 94% on 2 L nasal cannula at 1116 this morning. Telemetry reveals sinus rhythm in the 70s. Review of Systems Review of Systems: All systems reviewed & are unremarkable except as noted in HPI & below Physical Exam Physical Exam: Temp Pulse Resp BP Pulse Ox 36.7 C 70 17 102/68 94 12/17/20 11:16 12/17/20 11:16 12/17/20 11:16 12/17/20 11:16 12/17/20 11:16 Constitutional: WD/WN, vitals as above Cardiovascular: Rate/Rhythm: regular rhythm Heart Sounds: + murmur (2/6 systolic murmur) Vessels: + JVD Extremities: no edema Gastrointestinal (Abdomen): normal bowel sounds, soft, nontender, no hepatosplenomegaly Neurologic: PERRL, EOMI, accommodation nl, no face palsy, no dysarthria Results & Data ([facility]) Vital Signs (Past 12 Hours) Vital Signs Temp Pulse Resp BP Pulse Ox 12/17/20 11:16 36.7 C 70 17 102/68 94 12/17/20 06:40 36.7 C 78 18 106/68 93 12/17/20 03:00 36.9 C 67 18 115/75 97 Laboratory Results Intake and Output 12/16/20 12/17/20 12/17/20 22:59 06:59 14:59 Intake Total 200 / 680 Output Total 451 / 1501 650 / 1501 Balance -451 / -821 -450 / -821 -6 Intake: Oral 200 / 680 Output: Urine Amount (Catheter) 450 / 1500 650 / 1500 Bernal/Indwelling 450 / 1500 650 / 1500 # Bowel Movements Other: Weight 64.6 kg Weight Measurement Method Standing Scale
--- NOTE | 2020-12-17 14:16 | Communication Note ---
Date of Service: December 17, 2020 I called and updated patient's father by phone.
--- NOTE | 2020-12-17 17:05 | Hospitalist Progress Note ---
Date of Service December 17, 2020 Assessment & Plan (1) Acute on chronic respiratory failure with hypoxia: (2) Acute right-sided CHF (congestive heart failure): (3) Pulmonary HTN: Present on admission with worsening SOB and hypoxia Oxygen saturation on admission 85 % on RA Typically wears 2 L of oxygen with exertion and at sleep. Pt was placed on BIPAP in the ER CXR showed Cardiomegaly with pulmonary vascular congestion and interstitial coarsening suggestive of pulmonary edema. Admitting discussed the case with [facility] specialist Dr. Archie Garrett ([phone]) that recommended trial Lasix 40 mg IV and continuing tadalafil and macitentan Case discussed with cardiology that recommended Lasix 20mg IVx1 today Continue monitor I/O ECHO flatten septum is consistent with RV pressure and volume overload. EF 60-65 % Continue monitor BMP (4) Bacteremia: Blood cx grew Micrococcus species ( 1 bottle in 2 sets ) Possible contamination since pt is afebrile and no Leukocytosis Repeat blood cx today Will hold on antibiotic for now If pt becomes febrile and WBC elevates, will start on antibiotic Will check CBC and procalcitonin in am Follow up on repeat blood cx (5) KIRTI (acute kidney injury): Possible related to urinary retention Creatinine on admission 2.3 (baseline 0.7), Creatinine 1.1 Continue monitor BMP (6) Urinary retention: History of ongoing urinary retention, follows with [facility] urology Shaw cath was placed in the ER by Urology after multiple attempts by nursing staff Urology on board Case discussed with urology that recommended to discharge with the shaw cath Follow up with urology outpatient in 1 to 2 weeks (7) Asthma: Symptomatic Continue home inhalers (8) DVT prophylaxis: SQ heparin Admission and Anticipated Discharge Date Admission Date: December 14, 2020 Subjective Pt was seen and examined for follow up of SOB Lying in bed with no distress resting comfortable Denies any chest pain, palpitation, dizziness and SOB Review of Systems Review of Systems: All systems reviewed & are unremarkable except as noted in Subjective Physical Exam Physical Exam: General- No acute distress Head- atraumatic Eyes- PERRL, EOMI, ENT- oropharynx clear Neck- supple, no JVD Lungs- clear to auscultation Heart- regular rhythm; +murmur Abdomen- normal bowel sounds, soft, nontender Extremities- no calf tenderness Neuro- alert, awaked, PERRL, EOMI; no facial palsy; no dysarthria, follow commands Skin- warm & dry Results & Data Results & Data ([facility]) Vital Signs (Past 12 Hours) Vital Signs Temp Pulse Resp BP Pulse Ox 12/17/20 15:45 36.8 C 79 18 99/68 L 94 12/17/20 11:16 36.7 C 70 17 102/68 94 12/17/20 06:40 36.7 C 78 18 106/68 93
[2020-12-17] MEDS: OPSUMIT 10 MG PO SCH (18:02)
[2020-12-17] MEDS: OMEPRAZOLE 20 MG CAPCR PO SCH (22:30)
[2020-12-18] MEDS: traMADol HCL 50 MG TABLET PO PRN (00:54)
[2020-12-18] MEDS: HEPARIN SOD 5,000 UNIT/0.5 ML VIAL SQ SCH ×3 (05:50→21:14)
[2020-12-18 06:37] LABS: Hematocrit (blood only) 42.7 % (37-47); Mean Corpuscular Hemoglobin 30.2 pg (25-34); Mean Corpuscular Hgb Conc 32.8 g/dL (32-36); Platelet Count 250 K/uL (130-400); RDW Standard Deviation 50.7 fL (36.4-46.3); Red Blood Count 4.64 M/uL (4.2-5.4)
[2020-12-18 07:17] LABS: Albumin Globulin Ratio 0.7 (0.9-2); Albumin Level 2.8 gm/dl (3.4-5.0); BUN Creatinine Ratio 25.1 (10-20); Bilirubin,Total 0.5 mg/dl (0.2-1); Calcium 9.3 mg/dl (8.5-10.1); Creatinine Clr Calc Pharmacy 72.3 ml/min; Est GFR (African American) 108.5 ml/min; Est GFR (Non-African American) 93.6 ml/min; Potassium 4.4 mmol/L (3.5-5.1); Total Protein 6.8 gm/dl (6.4-8.2)
[2020-12-18] MEDS: DOCUSATE SODIUM/SENNA 50/8.6MG TAB PO SCH (09:00)
[2020-12-18] MEDS: FLUTICASONE FUROATE 100MCG 14 PUFFS/INHALER INH SCH (09:08)
[2020-12-18] MEDS: TADALAFIL 20 MG PO SCH (09:10)
[2020-12-18] MEDS: POTASSIUM CHLORIDE CRTAB 20 MEQ TABCR PO SCH ×2 (09:11→19:53)
--- NOTE | 2020-12-18 14:56 | Cardiology Progress Note ---
Date of Service December 18, 2020 Assessment & Plan (1) Acute on chronic respiratory failure with hypoxia: Secondary to volume overload and acute renal failure. Significant diuresis achieved with placement of Bernal catheter to relieve obstruction. -Received furosemide 20 mg on 12/17/2020. Observe off of diuretic today. -Per review of her intake and outtake summary, 7.9 L of urine output documented in the first 24 hours after Bernal catheter was placed on 12/15/2020, and another 3.4 L negative the day after that. CO2 has climbed mildly. She appears euvolemic on exam. (2) Status post atrioventricular septal defect repair: No evidence of residual shunt per echocardiogram. -RV pressure/volume overload physiology noted on echo, unchanged compared to previous outpatient. (3) Pulmonary HTN: Continue tadalafil, and macitentan as previously ordered. Continue IV diuresis. Continue negative fluid balance. -[place] [facility] [place] and [place] hypertension specialty clinic at [facility]. (4) KIRTI (acute kidney injury): Presenting creatinine was 2.37, down to 0.79 mg/dL with Bernal catheter in place, and furosemide. (5) Acute urinary retention: Status post Bernal catheter placement. -Urology input noted and appreciated. Meatal stenosis noted, however Bernal catheter placed successfully by urology. -Continue indwelling Bernal catheter. -Follow-up with urology as an outpatient. -We will need to clarify, if general urology will suffice, as compared to pediatric urology or emergency medical service manager/urology. -Has been following with Dr Mcgovern of [facility]. -Continue subcutaneous heparin for DVT prophylaxis. Admission and Anticipated Discharge Date Admission Date: December 14, 2020 Subjective Patient seen in cardiology follow-up of her chief complaint of shortness of breath. She is comfortable, lying in bed. Per nursing, she had gone for a walk with her Bernal catheter in place earlier today. Pulse oximetry reveals stable findings of oxygen saturation 94% on 2 L. Review of Systems Review of Systems: All systems reviewed & are unremarkable except as noted in HPI & below Physical Exam Physical Exam: Temp Pulse Resp BP Pulse Ox 37.4 C 71 17 105/68 94 12/18/20 11:24 12/18/20 11:24 12/18/20 11:24 12/18/20 11:24 12/18/20 11:24 Constitutional: WD/WN, vitals as above Cardiovascular: Rate/Rhythm: regular rhythm Heart Sounds: + murmur (2/6 systolic murmur heard best at right sternal border) Gastrointestinal (Abdomen): normal bowel sounds, soft, nontender, no hepatosplenomegaly Neurologic: PERRL, EOMI, accommodation nl, no face palsy, no dysarthria Results & Data ([facility]) Vital Signs (Past 12 Hours) Vital Signs Temp Pulse Resp BP Pulse Ox 12/18/20 11:24 37.4 C 71 17 105/68 94 12/18/20 07:20 36.5 C 64 17 107/72 97 12/18/20 03:03 36.8 C 70 17 110/74 97 Laboratory Results Cardiac Enzymes 12/18/20 Range/Units 06:19 AST 28 (15-37) U/L CBC 12/18/20 Range/Units 06:19 WBC 7.70 (4.8-10.8) K/uL RBC 4.64 (4.2-5.4) M/uL Hgb 14.0 (12.0-16.0) g/dL Hct 42.7 (37-47) % Plt Count 250 (130-400) K/uL Comprehensive Metabolic Panel 12/18/20 Range/Units 06:19 Sodium 138 (136-145) mmol/L Potassium 4.4 D (3.5-5.1) mmol/L Chloride 101 (98-107) mmol/L Carbon Dioxide 34 H (21-32) mmol/L BUN 20 H (7-18) mg/dl Creatinine 0.79 D (0.6-1.2) mg/dl Glucose 96 (70-99) mg/dl Calcium 9.3 (8.5-10.1) mg/dl AST 28 (15-37) U/L ALT 22 (12-78) U/L Alkaline Phosphatase 163 H (45-117) U/L Total Protein 6.8 (6.4-8.2) gm/dl Albumin 2.8 L (3.4-5.0) gm/dl Intake and Output 12/17/20 12/18/20 12/18/20 22:59 06:59 14:59 Intake Total 250 / 920 150 / 920 Output Total 1075 / 2584 300 / 2584 Balance -825 / -1664 -150 / -1664 Intake: Oral 250 / 920 150 / 920 Output: Urine Amount (Catheter) 1074 300 / 2575 Bernal/Indwelling 1074 300 / 2575 Other: Weight 63 kg Weight Measurement Method Standing Scale
--- NOTE | 2020-12-18 15:06 | Hospitalist Progress Note ---
Date of Service December 18, 2020 Assessment & Plan (1) Acute on chronic respiratory failure with hypoxia: (2) Acute right-sided CHF (congestive heart failure): (3) Pulmonary HTN: Present on admission with worsening SOB and hypoxia Oxygen saturation on admission 85 % on RA Typically wears 2 L of oxygen with exertion and at sleep. Pt was placed on BIPAP in the ER CXR showed Cardiomegaly with pulmonary vascular congestion and interstitial coarsening suggestive of pulmonary edema. Admitting discussed the case with [facility] specialist Dr. Archie Garrett ([phone]) that recommended trial Lasix 40 mg IV and continuing tadalafil and macitentan Pt has been diuresis well Case discussed with cardiology that recommended to hold on Lasix for now Plan to discharge on PO lasix 20mg three a week Continue monitor I/O ECHO flatten septum is consistent with RV pressure and volume overload. EF 60-65 % Continue monitor closely (4) Bacteremia: Blood cx grew Micrococcus species ( 1 bottle in 2 sets ) Possible contamination since pt is afebrile, no Leukocytosis and normal procalcitonin Repeat blood cx no growth Continue to hold on antibiotic for now If pt becomes febrile and WBC elevates, will start on antibiotic Follow up on repeat blood cx result (5) KIRTI (acute kidney injury): Possible related to urinary retention Creatinine on admission 2.3 (baseline 0.7), Creatinine 0.79 Continue monitor BMP (6) Urinary retention: History of ongoing urinary retention, follows with [facility] urology Shaw cath was placed in the ER by Urology after multiple attempts by nursing staff Urology on board Case discussed with urology that recommended to discharge with the shaw cath Follow up with urology outpatient in 1 to 2 weeks (7) Asthma: Symptomatic Continue home inhalers (8) DVT prophylaxis: SQ heparin Admission and Anticipated Discharge Date Admission Date: December 14, 2020 Subjective Pt was seen and examined for follow up of SOB Lying in bed with no distress resting comfortable Nurse said that pt has been walking in the hallway Denies any chest pain, palpitation, dizziness and SOB Review of Systems Review of Systems: All systems reviewed & are unremarkable except as noted in Subjective Physical Exam 2 Physical Exam: General- No acute distress Head- atraumatic Eyes- PERRL, EOMI, ENT- oropharynx clear Neck- supple, no JVD Lungs- clear to auscultation Heart- regular rhythm; +murmur Abdomen- normal bowel sounds, soft, nontender Extremities- no calf tenderness Neuro- alert, awaked, PERRL, EOMI; no facial palsy; no dysarthria, follow commands Skin- warm & dry Results & Data Results & Data ([facility]) Vital Signs (Past 12 Hours) Vital Signs Temp Pulse Resp BP Pulse Ox 12/18/20 11:24 37.4 C 71 17 105/68 94 12/18/20 07:20 36.5 C 64 17 107/72 97 12/18/20 03:03 36.8 C 70 17 110/74 97
[2020-12-18] MEDS: OPSUMIT 10 MG PO SCH (18:50)
[2020-12-18] MEDS: OMEPRAZOLE 20 MG CAPCR PO SCH (19:53)
[2020-12-19] MEDS: HEPARIN SOD 5,000 UNIT/0.5 ML VIAL SQ SCH ×2 (06:05→14:07)
[2020-12-19] MEDS: DOCUSATE SODIUM/SENNA 50/8.6MG TAB PO SCH (07:13)
[2020-12-19] MEDS: TADALAFIL 20 MG PO SCH (09:05)
[2020-12-19] MEDS: FLUTICASONE FUROATE 100MCG 14 PUFFS/INHALER INH SCH (09:06)
[2020-12-19] MEDS: POTASSIUM CHLORIDE CRTAB 20 MEQ TABCR PO SCH (09:07)
--- NOTE | 2020-12-19 10:50 | Cardiology Progress Note ---
Date of Service December 19, 2020 Assessment & Plan (1) Acute on chronic respiratory failure with hypoxia: (2) Acute hypoxemic respiratory failure: (3) Status post atrioventricular septal defect repair: (4) History of heart surgery: (5) Pulmonary HTN: Acute on chronic respiratory failure with hypoxia. Secondary to volume overload and acute renal failure. Significant diuresis achieved with placement of Bernal catheter to relieve obstruction. She has received three doses of IV furosemide on 12/14, 12/15, and 12/17/2020. Volume status is currently normovolemic. Discontinue intermittent IV diuretic. Start low dose furosemide (20 mg MWF) along with low dose spironolactone (12.5 mg MWF) Status post atrioventricular septal defect repair. No evidence of residual shunt per echocardiogram. RV pressure/volume overload physiology noted on echo, unchanged compared to previous outpatient. Pulmonary HTN. Continue tadalafil and macitentan as previously ordered. Followed by adult congenital cardiology at [facility] and pulmonary hypertension specialty clinic at [facility]. KIRTI (acute kidney injury). Presenting creatinine was 2.37, down to 0.79 mg/dL with Bernal catheter in place, and furosemide. Acute urinary retention. Status post Bernal catheter placement. Urology input noted and appreciated. Meatal stenosis noted, however Bernal catheter placed successfully by Urology. Continue indwelling Bernal catheter. -Follow-up with urology as an outpatient. Subcutaneous heparin for DVT prophylaxis. Admission and Anticipated Discharge Date Admission Date: December 14, 2020 Supervising Physician Co-Signing Physician Notes Patient seen and examined with Jamey Burgos PA-C. Agree with findings and assessment as above. Successfully diuresed with Bernal catheter placed for outlet obstruction. Already on extensive pulmonary hypertension treatment as an outpatient. We will add low-dose furosemide 20 mg p.o. Wednesdays and Fridays only. Subjective Patient seen and examined. Chart, medications, and telemetry reviewed. Patient has received IV furosemide on December 14, December 15, and December 17. I/O's negative 11,858 mL's overall Weight on presentation was 72.8 kg. Weight today, 12/19/2020 was 63.5 kg She denies chest pain, difficulty breathing, or palpitations. Telemetry reveals sinus rhythm in the 60s to 70s. No significant arrhythmias observed. Review of Systems Review of Systems: All systems reviewed & are unremarkable except as noted in HPI & below Physical Exam Physical Exam: General: Pleasant. Corporative. NAD. HENT: Atraumatic. Eyes: PER. Conjunctiva pink, sclera clear. Neck: No carotid bruits. No JVD. No HJR. Heart: RRR. Grade II/ systolic murmur. No diastolic murmur. No rub. No gallop. PMI is nondisplaced. Lungs: Decreased at the bases however clear to auscultation. Abdomen: +BS. Soft. Nontender. No masses or organomegaly. Extremities: No clubbing, cyanosis, or edema. Limited neurological examination is without focal deficits. Pulses: radial=2/4, posterior tibial=2/4. Results & Data ([facility]) Vital Signs (Past 12 Hours) Vital Signs Temp Pulse Pulse Resp BP BP Pulse Ox 12/19/20 08:00 68 12/19/20 07:01 36.8 C 70 18 104/67 95 12/19/20 03:42 36.6 C 68 20 104/69 95 12/18/20 23:04 36.9 C 72 18 107/66 95 Laboratory Results Laboratory Results - last 48 hr 12/17/20 12/17/20 12/18/20 14:40 17:20 06:19 WBC 7.70 RBC 4.64 Hgb 14.0 Hct 42.7 MCV 92.0 MCH 30.2 MCHC 32.8 RDW Std Deviation 50.7 H RDW Coeff of Yeny 15.0 H Plt Count 250 MPV 10.0 Sodium Potassium Chloride Carbon Dioxide Anion Gap BUN Creatinine Est Cr Clr Drug Dosing Est GFR ( Amer) Est GFR (Non-Af Amer) BUN/Creatinine Ratio Glucose Calcium Total Bilirubin AST ALT Alkaline Phosphatase Total Protein Albumin Globulin Albumin/Globulin Ratio Procalcitonin Stl C. diff Tox B Gene TNP TNP 12/18/20 12/18/20 06:19 06:19 WBC RBC Hgb Hct MCV MCH MCHC RDW Std Deviation RDW Coeff of Yeny Plt Count MPV Sodium 138 Potassium 4.4 D Chloride 101 Carbon Dioxide 34 H Anion Gap 3.0 BUN 20 H Creatinine 0.79 D Est Cr Clr Drug Dosing 72.3 Est GFR ( Amer) 108.5 Est GFR (Non-Af Amer) 93.6 BUN/Creatinine Ratio 25.1 H Glucose 96 Calcium 9.3 Total Bilirubin 0.5 AST 28 ALT 22 Alkaline Phosphatase 163 H Total Protein 6.8 Albumin 2.8 L Globulin 4.0 Albumin/Globulin Ratio 0.7 L Procalcitonin 0.32 Stl C. diff Tox B Gene
[2020-12-19] MEDS ORDERED: SPIRONOLACTONE 12.5 MG TAB PO SCH (11:15)
[2020-12-19] MEDS ORDERED: FUROSEMIDE 20 MG TAB PO SCH (11:30)
[2020-12-19 11:56] LABS: BUN Creatinine Ratio 20.8 (10-20); Calcium 9.5 mg/dl (8.5-10.1); Est GFR (Non-African American) 75.9 ml/min; Potassium 4.7 mmol/L (3.5-5.1)
--- NOTE | 2020-12-19 15:17 | Hospitalist Progress Note ---
Date of Service December 19, 2020 Assessment & Plan (1) Acute on chronic respiratory failure with hypoxia: (2) Acute right-sided CHF (congestive heart failure): (3) Pulmonary HTN: Present on admission with worsening SOB and hypoxia Oxygen saturation on admission 85 % on RA Typically wears 2 L of oxygen with exertion and at sleep. Pt was placed on BIPAP in the ER CXR showed Cardiomegaly with pulmonary vascular congestion and interstitial coarsening suggestive of pulmonary edema. Admitting discussed the case with [facility] specialist Dr. Archie Garrett ([phone]) that recommended trial Lasix 40 mg IV and continuing tadalafil and macitentan Pt has been diuresis well Case discussed with cardiology that recommended to hold on Lasix for now Plan to discharge on PO lasix 20mg three a week and spironolactone 12.5 mg 3x weekly Continue monitor I/O ECHO flatten septum is consistent with RV pressure and volume overload. EF 60-65 % Continue monitor closely Check BMP in 1 week to monitor electrolytes respiratory therapist said that pt had 2 step done back in 2018. at that time she required 2L NC continuously and 3L NC with activity Respiratory therapist checked with the place where pt gets her oxygen supply and they confirmed that pt is on 2L NC continuously and 3 L NC with ambulation Continue oxygen supplement (4) Bacteremia: Blood cx grew Micrococcus species ( 1 bottle in 2 sets ) Possible contamination since pt is afebrile, no Leukocytosis and normal procalcitonin Repeat blood cx no growth ( first blood cx was mostly contaminated) Continue to hold on antibiotic for now If pt becomes febrile and WBC elevates, will start on antibiotic (5) KIRTI (acute kidney injury): Possible related to urinary retention Creatinine on admission 2.3 (baseline 0.7), Creatinine 0.79 Continue monitor BMP (6) Urinary retention: History of ongoing urinary retention, follows with [facility] urology Shaw cath was placed in the ER by Urology after multiple attempts by nursing staff Meatal stenosis noted Urology on board Case discussed with urology that recommended to discharge with the shaw cath Follow up with urology outpatient in 1 to 2 weeks (7) Asthma: Symptomatic Continue home inhalers (8) DVT prophylaxis: SQ heparin Admission and Anticipated Discharge Date Admission Date: December 14, 2020 Subjective Pt was seen and examined for follow up of SOB Sitting in chair with no distress Pt said that he feels ok Denies any chest pain, palpitation and SOB Review of Systems Review of Systems: All systems reviewed & are unremarkable except as noted in Subjective Physical Exam Physical Exam: General- No acute distress Head- atraumatic Eyes- PERRL, EOMI, ENT- oropharynx clear Neck- supple, no JVD Lungs- clear to auscultation Heart- regular rhythm; +murmur Abdomen- normal bowel sounds, soft, nontender Extremities- no calf tenderness Neuro- alert, awaked, PERRL, EOMI; no facial palsy; no dysarthria, follow commands Skin- warm & dry Results & Data Results & Data ([facility]) Vital Signs (Past 12 Hours) Vital Signs Temp Pulse Pulse Resp BP BP Pulse Ox 12/19/20 11:08 36.4 C L 81 18 119/74 96 12/19/20 08:00 68 12/19/20 07:01 36.8 C 70 18 104/67 95 12/19/20 03:42 36.6 C 68 20 104/69 95
[2020-12-19] MEDS: OPSUMIT 10 MG PO SCH (17:22)
--- NOTE | 2020-12-27 02:04 | Discharge Summary ---
Date of Service December 19, 2020 Admission HPI Per Admitting Provider 40-year-old female with PMH Down syndrome, pulmonary hypertension, asthma, s/p ASD repair as a child, chronic hypoxic respiratory failure, and other problems listed below who presents the ED for evaluation of shortness of breath. Patient's father is the bedside who provides some history. Reports that he is noted increased work of breathing over the past couple of days. Overnight, patient was diaphoretic and appeared to be more short of breath. She wears oxygen 2 L with exertion and during sleep. Per father, patient was hypoxic in the 70s. He increased her oxygen to 4 L with little improvement. Patient was t hen brought to the ED for further evaluation. Patient has been having ongoing issues with urinary retention and has been following closely with urology. History is limited from the patient, no other symptoms reported by the father. In the ED, patient was hypoxic 85%, she was placed on BiPAP. CXR is suggestive of pulmonary edema. Patient was bladder scanned her for 1000 cc, PVR 50 cc. Urology was consulted and placed Shaw catheter. Patient was given IV Zosyn, IV Lasix 40 mg. Admission Exam Per Admitting Provider Constitutional: WD/WN, vitals as above Eyes: PERRL, conjunctivae normal, anicteric sclerae Respiratory: normal respiratory effort; no respiratory distress Auscultation: + diminished lung sounds On BiPAP Cardiovascular: Rate/Rhythm: regular rate and regular rhythm Vessels: normal peripheral pulses Extremities: no edema Gastrointestinal (Abdomen): normal bowel sounds, soft, nontender, no hepatosplenomegaly Musculoskeletal: no cyanosis or clubbing, extremities motor strength 5/5 Skin: no rashes, warm and dry Neurologic: PERRL, EOMI, accommodation nl, no face palsy, no dysarthria Psychiatric: Orientation: alert, oriented to person and cooperative Insight: + limited insight Principal Diagnosis (1) Acute on chronic respiratory failure with hypoxia: (2) Acute right-sided CHF (congestive heart failure): (3) Pulmonary HTN (4) KIRTI (acute kidney injury): (5) Urinary retention: Discharge Exam General- No acute distress Head- atraumatic Eyes- PERRL, EOMI, ENT- oropharynx clear Neck- supple, no JVD Lungs- clear to auscultation Heart- regular rhythm; +murmur Abdomen- normal bowel sounds, soft, nontender Extremities- no calf tenderness Neuro- alert, awaked, PERRL, EOMI; no facial palsy; no dysarthria, follow commands Skin- warm & dry Discharge Data Allergies Allergy/AdvReac Type Severity Reaction Status Date / Time Sulfa (Sulfonamide Allergy Unknown ` Verified 12/14/20 11:24 Antibiotics) Consultations 12/14/20 12:28 ED Decision to Admit Stat 12/14/20 14:10 Consult Urology Routine 12/14/20 15:56 Consult Cardiology Routine Ordered Studies 12/14/20 22:54 US venous doppler LE LT Urgent 12/16/20 00:39 CT abd pelvis wo con Urgent CT SCAN OF THE ABDOMEN AND PELVIS WITHOUT CONTRAST CLINICAL HISTORY: abd back pain COMPARISON STUDY: No previous studies for comparison. TECHNIQUE: CT scan of the abdomen and pelvis was performed from the lung bases to the proximal femurs. Images are reviewed in the axial, sagittal, and coronal planes. IV contrast was not administered for this examination. A dose lowering technique was utilized adhering to the principles of ALARA. CT DOSE: 499.29 mGy.cm FINDINGS: Lower chest: Infrahilar consolidative lesion with patent bronchi is seen within left lower lobe with surrounding ill-defined groundglass opacities. Patchy nodular and groundglass opacities are seen within right base. Atelectasis is seen within right lower lobe. Diaphragmatic hernia is seen at the posterior right hemithorax. Liver: The unenhanced liver is normal in size, contour, and attenuation. There is no intrahepatic biliary ductal dilatation. Gallbladder: Unremarkable. Spleen: Normal in size and attenuation. Pancreas: Unremarkable. Adrenal glands: Nodularity of the left adrenal gland. Right adrenal gland is not well seen. Kidneys: Moderate hydronephrosis seen bilaterally. Right kidney is herniate to the right lower chest region. No evidence of obstructive nephrolithiasis. Urinary bladder is enlarged with Shaw balloon within its lumen. Prominent thickening of the urinary bladder wall and surrounding fat stranding likely represent inflammatory changes/cystitis. Evaluation is limited due to lack of IV contrast. Uterus and adnexa appear normal for age, evaluation is limited on this nondedicated nonenhanced exam. Bowel: The small bowel and colon are normal in course and caliber. Evaluation is limited due to lack of contrast. Appendix is not well seen. Peritoneum: There is no intraperitoneal free air or abdominal ascites. Vasculature: The abdominal aorta is normal in course and caliber. Adenopathy: None. Skeletal structures: Few Schmorl nodes are seen within the spine. IMPRESSION: 1. Consolidative and groundglass opacities within bilateral lower lungs likely represent multifocal pneumonia, however other etiology is also possible. Short- term follow-up in 4-[address] of the chest is recommended to document resolution. 2. Bilateral moderate hydronephrosis without obstructing nephrolithiasis. Urinary bladder is enlarged with severe thickening of its wall and surrounding inflammatory changes. Differential diagnosis includes cystitis versus other etiology. Further evaluation with ultrasound might be considered if clinically indicated. ACT 112: Negative or not required by law. The above report was generated using voice recognition software. It may contain grammatical, syntax or spelling errors. Electronically signed by: Maryjane Jacobs DO 12/16/2020 9:43 AM Dictated: 12/16/20 0922Transcribed: 12/16/20921 LEFT LOWER EXTREMITY VENOUS DOPPLER HISTORY: Left lower extremity cramping. COMPARISON STUDY: None. FINDINGS: There is normal compressibility, flow, and augmentation within the left lower extremity deep venous system. IMPRESSION: No DVT within the left lower extremity. ACT 112: Negative or not required by law. Electronically signed by: Tayo Daly M.D. 12/15/2020 7:17 AM Dictated: 12/15/20 0717Transcribed: 12/15/20 0717 XR chest 1V portable HISTORY: 40 years-old Female SEPSIS acute sepsis COMPARISON: CTA chest 07/11/2018 TECHNIQUE: Portable AP view of the chest FINDINGS: Moderate enlargement of the cardiac silhouette. Pediatric sternotomy wires. Right-sided Bochdalek hernia. Pulmonary vascular congestion with interstitial coarsening, trace pleural effusions and bibasilar consolidation. Bilateral shoulder rotator cuff calcific tendinosis. Bones appear grossly intact. IMPRESSION: 1. Cardiomegaly with pulmonary vascular congestion and interstitial coarsening suggestive of pulmonary edema. 2. Trace pleural effusions. 3. Right-sided Bochdalek hernia with bibasilar opacities suggestive of ate lectasis versus pneumonia. ACT 112: Negative or not required by law. The above report was generated using voice recognition software. It may contain grammatical, syntax or spelling errors. Electronically signed by: Kaleb Rose M.D. 12/14/2020 11:11 AM Dictated: 12/14/201105Transcribed: 12/14/20 1106 Hospital Course (1) Acute on chronic respiratory failure with hypoxia: (2) Acute right-sided CHF (congestive heart failure): (3) Pulmonary HTN: Present on admission with worsening SOB and hypoxia Oxygen saturation on admission 85 % on RA Typically wears 2 L of oxygen with exertion and at sleep. Pt was placed on BIPAP in the ER CXR showed Cardiomegaly with pulmonary vascular congestion and interstitial coar sening suggestive of pulmonary edema. Admitting discussed the case with [facility] specialist Dr. Archie Garrett ([phone]) that recommended trial Lasix 40 mg IV and continuing tadalafil and macitentan Pt has been diuresis well Case discussed with cardiology that recommended to hold on Lasix for now Plan to discharge on PO lasix 20mg three a week and spironolactone 12.5 mg 3x weekly Continue monitor I/O ECHO flatten septum is consistent with RV pressure and volume overload. EF 60-65 % Continue monitor closely Check BMP in 1 week to monitor electrolytes respiratory therapist said that pt had 2 step done back in 2018. at that time she required 2L NC continuously and 3L NC with activity Respiratory therapist checked with the place where pt gets her oxygen supply and they confirmed that pt is on 2L NC continuously and 3 L NC with ambulation Continue oxygen supplement (4) Bacteremia: Blood cx grew Micrococcus species ( 1 bottle in 2 sets ) Possible contamination since pt is afebrile, no Leukocytosis and normal procalcitonin Repeat blood cx no growth ( first blood cx was mostly contaminated) Continue to hold on antibiotic for now If pt becomes febrile and WBC elevates, will start on antibiotic (5) KIRTI (acute kidney injury): Possible related to urinary retention Creatinine on admission 2.3 (baseline 0.7), Creatinine 0.79 Continue monitor BMP (6) Urinary retention: History of ongoing urinary retention, follows with [facility] Shaw cath was placed in the ER by Urology after multiple attempts by nursing staff Meatal stenosis noted Urology on board Case discussed with urology that recommended to discharge with the shaw cath Follow up with urology outpatient in 1 to 2 weeks (7) Asthma: Symptomatic Continue home inhalers (8) DVT prophylaxis: SQ heparin Total Time Total Time Spent Total Time Spent (In Minutes): 35 minutes Total Time Includes: Examination of the Patient, Discharge Planning, Medication Reconciliation, Communication With Other Providers and Other Discharge Plan Discharge Items Patient Disposition: Home - Self-Care Reason For Visit: CHF Discharge Diagnosis: (1) Acute on chronic respiratory failure with hypoxia: (2) Acute right-sided CHF (congestive heart failure): (3) Pulmonary HTN (4) KIRTI (acute kidney injury): (5) Urinary retention: Activity: Resume your previous activity Non-emergency contact: Primary Care Provider Call non-emergency contact if: you have any medication questions Follow-up/Referrals: Lv Michaels MD [Primary Care Provider] - (Date & Time 12/23/2020 11:00 AM Provider Lv Michaels MD Department Family Practice [facility] ) Sterling Warren PA-C [Outside Practitioners] - (Date & Time 01/13/2021 8:30 AM Provider Sterling Warren PA-C Department Urology, [facility] ) Diet: Heart Healthy Addtl Attending Provider Instructions: Follow up with your primary care provider Dr. Michaels on 12/23/2020 at 11:00 AM Follow up with urology [facility] on 01/13/2021 at 8:30 AM Follow up with adult congenital cardiology at [facility] Dr. Tom Follow up with pulmonary hypertension specialty clinic at [facility] Check BMP in 1 week to monitor renal function and electrolytes Continue Follow catheter for now Continue oxygen supplement with 2L NC continuously and 3L NC with activities Pending Studies at Discharge: No Stand-Alone Forms: My [employer], Smoking Cessation Medications and DC Order Prescriptions: New spironolactone 25 mg Tablet 12.5 mg PO MOWEFR Qty: 30 RF: 0 furosemide 20 mg Tablet 20 mg PO MOWEFR Qty: 30 RF: 0 potassium chloride 10 mEq tablet extended release 10 meq PO .mwf Qty: 30 RF: 0 Continued multivitamin Tablet,Chewable 1 tab PO QAM RF: 0 acetaminophen 325 mg capsule 650 mg PO Q4H PRN (Reason: Fever Or Pain) Qty: 100 RF: 0 albuterol sulfate 90 mcg/actuation HFA aerosol inhaler 2 puffs INH Q6H PRN (Reason: shortness of breath or wheezing) Qty: 8 RF: 0 Flovent Diskus 100 mcg/actuation blister with device 1 inh INHALATION BID RF: 0 omeprazole 20 mg capsule,delayed release(DR/EC) 20 mg PO PM RF: 0 Opsumit 10 mg tablet 10 mg PO PM RF: 0 tadalafil (pulm. hypertension) 20 mg tablet 40 mg PO QAM RF: 0 Discharge Orders: Discharge Order (Routine); Ordered 12/19/20 Ordered By: Darwin Akers Admission Data Admit Date/Time: 12/14/20 12:55 Attending Provider: Darwin Akers Admit Provider: Rufus Mcclellan Primary Care Provider: Lv Michaels Other Providers: Kareem Hoff ; Rufus Mcclellan ; Dave Celestin Other Interventions: Discharge Summary Assessment (RN) Last Done: 12/19/20 19:13
== END 2020-12-19 19:47 | disposition home or self-care (01) | DRG 291 ==
LOC: ED 09:39 → 2S 12:55 → SUATTDRO 12:55 → 2S 15:49

== ENCOUNTER 2025-07-20 10:51 | Inpatient (IN) ==
--- NOTE | 2025-07-20 11:16 | Emergency Department Note ---
Impression & Plan Acute hypoxemic respiratory failure, Influenza A, Pulmonary edema, Hypomagnesemia, Thrombocytopenia, Elevated troponin, KIRTI (acute kidney injury) ED Provider Note HISTORY OF PRESENT ILLNESS: Patient is a 44-year-old female presenting with shortness of breath. Father helps provide history. Patient has a history of pulmonary hypertension and wears oxygen only at nighttime. Father states that she has had some slight congestion over the last few days, but reports that yesterday it seemed to get a little bit worse. He states that with the holiday he wanted to make sure she was okay. Patient has been having a cough productive of some mucus but denies any hemoptysis or discoloration to the mucus. She states she does not feel terribly short of breath. She does report that she has some pain in the middle of her back. Denies any DVT or PE history. She is not on any anticoagulation or antiplatelet therapies. Denies any recent antibiotic or steroid use. Her saturations at home were running in the mid to low 70s and was instructed to come to the ER after they try to get her an appointment at her primary care providers. ROS: as above PHYSICAL EXAM: Constitutional: Patient appears in no acute distress. HENT: Head: Normocephalic and atraumatic. Eyes: EOMI, PERRL Mouth/Throat: Mucous membranes moist. Neck: Trachea midline. Neck supple. Cardiovascular: RRR, No murmurs, rubs or gallops. Intact distal pulses. Pulmonary/Chest: No respiratory distress. Breath sounds clear and equal bilaterally. Coarse breath sounds in bilateral lung bases. On 2L nasal cannula. Abdominal: Abdomen soft, no tenderness, rebound or guarding. Musculoskeletal: No edema, tenderness or deformity noted. Skin: Warm and dry. No rash, erythema, pallor or cyanosis Psychiatric: Appropriate mood and affect for situation. Neurological: Alert and keenly responsive. CN II-XII grossly intact, moving all extremities equally and fully. MDM: - Vitals signs showed hypoxia - History obtained via patient. History as above. - Chronic conditions affecting care: Down Syndrome; pulmonary HTN; right-sided CHF - Differential diagnoses include, but are not limited to: Congestive heart failure; acute coronary syndrome; COPD/asthma exacerbation; pulmonary edema; pulmonary embolism; pneumonia; pneumothorax; viral syndrome - Order placed for continuous cardiac monitoring. At this time, monitor showed rate of 70 bpm with normal sinus rhythm, per my interpretation. - External medical records reviewed. Discharge summary dated 12/19/2020 was reviewed. Patient was admitted for acute hypoxic respiratory failure and found to have acute right-sided CHF. - EKG image interpreted by myself showed normal sinus rhythm. Rate 70 bpm. QT 358. No acute ischemic changes. Noted to have some T wave inversions in lead III. - Laboratory workup interpreted by myself showed normal WBC; thrombocytopenia (plt 85); normal PT/INR; KIRTI (Cr 1.8); hypomagnesemia (Mg 1.6); elevated troponin (25.1); normal BNP; negative hCG - Viral swab is flu a positive. - Patient initially given 1g IV magnesium and 500 cc NS for electrolyte replacement and KIRTI. - Given patient's kidney function and creatinine clearance 11 to 30 mL/min, her Tamiflu dosing is 30 mg daily. Ordered her first dose here in the ER. - CXR image reviewed and interpreted by myself does show some pulmonary vascular congestion. - Given 20 mg IV lasix. - Discussion was had with case management coordinator about patient's case and need for admission - Hospitalist consulted for admission - [facility] ASSESSMENT AND PLAN: Diagnosis: Acute hypoxemic respiratory failure; influenza A; pulmonary edema; hypomagnesemia; thrombocytopenia; elevated troponin; KIRTI Plan: admit Past Med/Surg History Problem List (Updated 07/20/25 @ 12:35 by Chelsea Arana MD) KIRTI (acute kidney injury) (Acute) Elevated troponin (Acute) Thrombocytopenia (Acute) Hypomagnesemia (Acute) Pulmonary edema (Acute) Influenza A (Acute) Acute hypoxemic respiratory failure (Acute) Medical History Acute hypoxemic respiratory failure Acute urinary retention KIRTI (acute kidney injury) Chronic respiratory failure with hypoxia Down syndrome Pulmonary HTN Surgical History History of heart surgery 1981: pulmonary artery banding and right lower lobectomy 1983: AVSD repair Family History Other Family history non-contributory Social History Smoking Status: Never smoker Hx Alcohol Use: No Hx Substance Use: No Preferred Language: Arabic Communication Ability: Effective Sediment Remediation Consultant Required: No Beliefs That Will Affect Care: None Current Living Situation: Parent Feels Safe at Home: Yes Assistive Devices: Glasses and Oxygen - Continuous Allergies Allergies Allergy/AdvReac Type Severity Reaction Status Date / Time Sulfa (Sulfonamide Allergy Unknown ` Verified 12/14/20 11:24 Antibiotics) Home Meds Home Medications Medication Instructions Recorded Confirmed multivitamin 1 tab PO QAM 07/10/18 12/14/20 fluticasone propionate 100 1 inh inhalation BID 12/14/20 12/14/20 mcg/actuation blister powder for inhalation (Flovent Diskus) macitentan 10 mg tablet (Opsumit) 10 mg PO PM 12/14/20 12/14/20 omeprazole 20 mg capsule,delayed 20 mg PO PM 12/14/20 12/14/20 release tadalafil (pulm. hypertension) 20 40 mg PO QAM 12/14/20 12/14/20 mg tablet (pulmonary hypertension) Previous Rx's Medication Instructions Recorded acetaminophen 325 mg capsule 650 mg (2 x 325 mg) PO Q4H PRN 07/14/18 Fever Or Pain #100 caps albuterol sulfate 90 mcg/actuation 2 puffs inhalation Q6H PRN 07/14/18 aerosol inhaler shortness of breath or wheezing #8 grams furosemide 20 mg tablet 20 mg PO MOWEFR #30 tabs 12/19/20 potassium chloride 10 mEq 10 meq PO .mwf #30 tabs 12/19/20 tablet,extended release spironolactone 25 mg tablet 12.5 mg (1/2 x 25 mg) PO MOWEFR 12/19/20 #30 tabs ciprofloxacin HCl 0.3 % eye drops 3 drp ophthalmic (eye) BID #10 mL 02/08/21 Results & Data (ED) Vital Signs Vital Signs - 24 hr 07/20/25 10:52 07/20/25 11:56 Temperature 36.8 C 37.6 C H Temperature Source Temporal Artery Scan Oral Pulse Rate 84 Pulse Rate [Apical] 69 Respiratory Rate 20 18 Respiratory Effort / Characteristics Non-Labored Non-Labored Spontaneous Respiratory Depth Normal Normal Blood Pressure 119/78 Blood Pressure [Right Arm] 117/73 Blood Pressure Mean 91 Blood Pressure Mean [Right Arm] 87 Pulse Oximetry 84 L 97 Oxygen Delivery Method Room Air Nasal Cannula Oxygen Flow Rate 2 Sepsis Recent Fever Within 48 Hours No Sepsis New/Unexplained Change in Mental Status No Sepsis Action Taken by Nursing No Action Required Laboratory Data 07/20/25 11:15 07/20/25 11:15 Lab Results 07/20/25 07/20/25 Range/Units 10:45 11:15 WBC 6.40 (4.8-10.8) K/ul RBC 3.67 L (4.20-5.40) M/uL Hgb 11.9 L (12.0-16.0) g/dL Hct 34.5 L (37.0-47.0) % MCV 94.0 (80.0-100.0) fL MCH 32.4 (25.0-34.0) pg MCHC 34.5 (32.0-36.0) g/dL RDW Std Deviation 49.5 H (36.4-46.3) fL RDW Coeff of Yeny 14.5 (11.5-14.5) % Plt Count 85 L (130-400) K/uL MPV 10.6 (9.4-12.4) fL Immature Gran % (Auto) 0.6 % Neut % (Auto) 82.8 % Lymph % (Auto) 10.2 % Patrick % (Auto) 6.1 % Eos % (Auto) 0.0 % Baso % (Auto) 0.3 % Neut # (Auto) 5.30 (1.40-6.50) K/uL Lymph # (Auto) 0.65 L (1.20-3.40) K/uL Patrick # (Auto) 0.39 (0.11-0.59) K/uL Eos # (Auto) 0.00 (0.00-0.50) K/uL Baso # (Auto) 0.02 (0.00-0.20) K/uL Immature Gran # (Auto) 0.04 (0.01-0.20) K/uL PT 10.9 (9.0-12.0) Seconds INR 1.0 (0.9-1.1) Sodium 139 (136-145) mmol/L Potassium 3.8 (3.5-5.1) mmol/L Chloride 106 (98-107) mmol/L Carbon Dioxide 25 (21-32) mmol/L Anion Gap 8 (3-11) BUN 32 H (6-23) mg/dl Creatinine 1.80 H (0.6-1.2) mg/dl Est Cr Clr Drug Dosing 25.8 ml/min eGFR 35.19 BUN/Creatinine Ratio 17.8 (10-20) Glucose 96 (70-99(Fasting)) mg/dl Calcium 8.7 (8.6-10.3) mg/dl Magnesium 1.6 L (1.7-2.4) mg/dl Total Bilirubin 0.4 (0.2-1.0) mg/dl AST 16 (13-39) U/L ALT 9 (7-52) U/L Alkaline Phosphatase 57 (34-104) U/L Troponin I High Sens 25.1 H (0-14) pg/ml B-Natriuretic Peptide 95 (0-100) pg/ml Total Protein 7.0 (6.0-8.3) gm/dl Albumin 3.6 (3.4-5.0) gm/dl Globulin 3.4 (2.5-4.0) gm/dl Albumin/Globulin Ratio 1.1 (0.9-2) HCG, Qual Negative (Negative) SARS-CoV-2 (PCR) NEGATIVE (Negative) Influenza Type A (PCR) Positive A (Neg) Influenza Type B (PCR) Negative (Neg) RSV (RT-PCR) Negative (Neg) Administered Medications Magnesium Sulfate/Dextrose (Magnesium Sulfate / D5w) 1 gm in 100 mls @ 100 mls/hr IV NOW STA Stop: 07/20/25 12:54 Last Admin: 07/20/25 12:04 Dose: 100 mls/hr Documented By: liliana Discontinued Medications Sodium Chloride (Nss) 500 mls @ 999 mls/hr IV .Q31M ONE Stop: 07/20/25 12:25 Last Admin: 07/20/25 12:04 Dose: 999 mls/hr Documented By: liliana Imaging Data Radiologist's Impression: Chest X-Ray 07/20/25 11:04 SINGLE VIEW CHEST CLINICAL HISTORY: Dyspnea FINDINGS: An AP, portable, upright chest radiograph is compared to study dated 09/12/2021 and correlated with chest CT dated 07/11/2018. The patient is status post midline sternotomy. The heart is enlarged. There is pulmonary vascular congestion with mild interstitial edema. Trace pleural effusions are suspected with dependent airspace opacities. A right basilar opacity is unchanged and likely represents a fat-containing Bochdalek hernia when compared to prior chest CT. No pneumothorax is seen. The skeletal structures are osteopenic. The bony thorax is grossly intact. IMPRESSION: 1. Cardiomegaly with evidence of congestive failure and mild pulmonary edema. Correlate clinically for evidence of a superimposed infectious/inflammatory pneumonitis. Radiographic follow-up to resolution is recommended. 2. Small pleural effusions with dependent airspace opacities ACT 112: Negative or not required by law. Electronically signed by: Palmer Guzman M.D. 07/20/2025 11:59 AM Discharge Plan Visit Data Chief Complaint: Flu Like Symptoms Stated Complaint: FEVER, RUNNY NOSE ED Provider: Chelsea Arana Discharge Problem: Acute hypoxemic respiratory failure, Influenza A, Pulmonary edema, Hypomagnesemia, Thrombocytopenia, Elevated troponin, KIRTI (acute kidney injury) Patient Disposition: Admitted As Inpatient Condition: Fair Forms Stand Alone Forms: [facility] Prescriptions Prescriptions: No Action multivitamin Tablet,Chewable 1 tab PO QAM acetaminophen 325 mg capsule 650 mg PO Q4H PRN (Reason: Fever Or Pain) Qty: 100 0RF albuterol sulfate 90 mcg/actuation HFA aerosol inhaler 2 puffs INH Q6H PRN (Reason: shortness of breath or wheezing) Qty: 8 0RF Flovent Diskus 100 mcg/actuation blister with device 1 inh INHALATION BID omeprazole 20 mg capsule,delayed release(DR/EC) 20 mg PO PM Opsumit 10 mg tablet 10 mg PO PM tadalafil (pulm. hypertension) 20 mg tablet 40 mg PO QAM spironolactone 25 mg Tablet 12.5 mg PO MOWEFR Qty: 30 0RF furosemide 20 mg Tablet 20 mg PO MOWEFR Qty: 30 0RF potassium chloride 10 mEq tablet extended release 10 meq PO .mwf Qty: 30 0RF Rx Instructions: On Saturday, Saturday, Saturday ( on day lasix given only) ciprofloxacin HCl 0.3 % drops 3 drp ophthalmic (eye) BID Qty: 10 1RF Rx Instructions: apply 3-4 drops to the left ear 2x per day as directed and then allow to drain Referrals Referrals: Lv Michaels MD [Primary Care Provider] -
[2025-07-20 11:37] LABS: Hematocrit (blood only) 34.5 % (37.0-47.0); Hemoglobin 11.9 g/dL (12.0-16.0); Mean Corpuscular Hemoglobin 32.4 pg (25.0-34.0); Mean Corpuscular Volume 94.0 fL (80.0-100.0); Platelet Count 85 K/uL (130-400); RDW Standard Deviation 49.5 fL (36.4-46.3); Red Blood Count 3.67 M/uL (4.20-5.40); White Blood Count 6.40 K/ul (4.8-10.8)
[2025-07-20 11:45] LABS: Immature Granulocytes # (auto) 0.04 K/uL (0.01-0.20); Immature Granulocytes % (auto) 0.6 %
[2025-07-20 11:47] LABS: Pregnancy Test, Serum Negative (Negative)
[2025-07-20 11:49] LABS: Influenza A virus by PCR Positive (Neg); Influenza B virus by PCR Negative (Neg); SARS CoV2 RNA(COVID-19) Ceph NEGATIVE (Negative)
[2025-07-20 11:53] LABS: Alanine Aminotransferase 9.0 U/L (7-52); Albumin Globulin Ratio 1.1 (0.9-2); Albumin Level 3.6 gm/dl (3.4-5.0); Alkaline Phosphatase 57.0 U/L (34-104); Anion Gap 8.0 (3-11); Bilirubin,Total 0.4 mg/dl (0.2-1.0); Blood Urea Nitrogen 32.0 mg/dl (6-23); Calcium 8.7 mg/dl (8.6-10.3); Carbon Dioxide 25.0 mmol/L (21-32); Chloride 106.0 mmol/L (98-107); Creatinine Clr Calc Pharmacy 25.8 ml/min; Globulin 3.4 gm/dl (2.5-4.0); Glucose 96.0 mg/dl (70-99(Fasting)); Magnesium 1.6 mg/dl (1.7-2.4); Potassium 3.8 mmol/L (3.5-5.1); Sodium 139.0 mmol/L (136-145); Total Protein 7.0 gm/dl (6.0-8.3)
[2025-07-20 11:56] LABS: INR 1.0 (0.9-1.1); Prothrombin Time 10.9 Seconds (9.0-12.0)
--- NOTE | 2025-07-20 12:01 | XRay Report ---
SINGLE VIEW CHEST CLINICAL HISTORY: Dyspnea FINDINGS: An AP, portable, upright chest radiograph is compared to study dated 09/12/2021 and correlat ed with chest CT dated 07/11/2018. The patient is status post midline sternotomy. The heart is enlarg ed. There is pulmonary vascular congestion with mild interstitial edema. Trace pleural effusions are suspected with dependent airspace opacities. A right basilar opacity is unchanged and likely represen ts a fat-containing Bochdalek hernia when compared to prior chest CT. No pneumothorax is seen. The sk eletal structures are osteopenic. The bony thorax is grossly intact. IMPRESSION: 1. Cardiomegaly with evidence of congestive failure and mild pulmonary edema. Correlate clinically fo r evidence of a superimposed infectious/inflammatory pneumonitis. Radiographic follow-up to resolutio n is recommended. 2. Small pleural effusions with dependent airspace opacities ACT 112: Negative or not required by law. Electronically signed by: Palmer Guzman M.D. 07/20/2025 11:59 AM
[2025-07-20] MEDS: SODIUM CHLORIDE 0.9% 500 ML IV ONE (12:04)
[2025-07-20] MEDS: MAGNESIUM SULFATE / D5W 1 GM/100 ML BAG IV STA (12:04)
--- NOTE | 2025-07-20 12:42 | History & Physical Report ---
Date of Service July 20, 2025 Assessment & Plan (1) Acute hypoxemic respiratory failure: (2) Influenza A: (3) Hypomagnesemia: (4) Thrombocytopenia: (5) Elevated troponin: (6) KIRTI (acute kidney injury): Plan This is a 44-year-old female who has a significant past medical history of Down syndrome, chronic HFpEF, interstitial lung disease, pulmonary hypertension, asthma, history of VSD closure, history of pulmonary artery band and GERD who presents to ED secondary to ill feeling x 2 days. Pt presents to 2 days of elevated temp, runny nose, productive cough and ill feeling. She was hypoxic prior to arrival with O2 in the 70s, now on 2L saturating at 92%. + For Influenza A, CXR with questionable congestive changes and pulmonary edema; therefore given 20mg of IV lasix in ED #Acute hypoxic resp failure #Influenza A #ILD #Probable RLL PNA - pt does not meet sepsis criteria admit to med tele continue supplemental O2, wean as tolerated nebs, incentive spirometry, muccinex Tamiflu 30mg daily, (adjust based on renal function) elevated procal - will tx for bacterial component with IV Cefepime and doxycycline sputum culture #Chronic HFpEF #hx of VSD Closure #Pulm HTN #Hx of right heart failure #Elevated trop appears dry on exam, no signs of overload, BNP normal, also with KIRTI in setting of decreased intake received 20mg IV lasix in ED, at home takes Lasix/Aldactone twice weekly daily weights, I and O will hold further diuresis for now given KIRTI, monitor suspect elevated trop in setting of demand ischemia from hypoxia, will trend obtain updated echo, last in 2020, EF 60-65%, right ventricle mildly dilated, RVSF, mild supravalvular pulmonic stenosis, mild TR, PASP 66mhg #KIRTI last labs in 2021, normal cr Cr 1.8 today, hx of obstruction with meatal stenosis requiring shaw cath will obtain renal/bladder US, bladder scans monitor renal fxn, avoid nephrotoxic agents #Thrombocytopenia suspect 2/2 to above illness #DVT ppx: SQ Heparin, monitor plt ct closely FULL CODE PCP: Xenia Dispo: admit to med tele I spent a total of 62 minutes coordinating, documenting and providing care for this patient excluding time spent in the performance of separately billed services or time spent by another provider/QHP. Pt was seen and examined in collaboration with Dr. Gonzalez, please see addendum History of Present Illness Chief Complaint: Ill feeling x 2 days. Primary Care Provider: Lv Michaels MD This is a 44-year-old female who has a significant past medical history of Down syndrome, chronic HFpEF, interstitial lung disease, pulmonary hypertension, asthma, history of VSD closure, history of pulmonary artery band and GERD who presents to ED secondary to ill feeling x 2 days. She is present with her father. History obtained from ED provider, external chart review, patient and father. She reports rhinorrhea starting 2 days ago. Yesterday she developed a productive cough of clear phlegm," feeling of a frog in her throat," congestion, elevated temp of 100 and shortly after breakfast developed SOB and low oxygen. Her O2 sats were as low at 75% per family. No sick contacts. She only goes out 2x a week for lunch. Denies dizziness, lightheaded, chest pain, hemopytsis, n/v/d, abd pain. She has been having normal bowel habits. She does have urinary frequency for which she follows urology. This is chronic for her. In ED she was requiring 2L of O2. She tested + for flu. Allergies Allergy/AdvReac Type Severity Reaction Status Date / Time Sulfa (Sulfonamide Allergy Unknown ` Verified 12/14/20 11:24 Antibiotics) Home Medications Medication Instructions Recorded Confirmed Type multivitamin 1 tab PO QAM 07/10/18 07/20/25 History acetaminophen 325 mg capsule 650 mg (2 x 325 mg) PO Q4H PRN 07/14/18 07/20/25 Rx Fever Or Pain #100 caps albuterol sulfate 90 mcg/actuation 2 puffs inhalation Q6H PRN 07/14/18 07/20/25 Rx aerosol inhaler shortness of breath or wheezing #8 grams omeprazole 20 mg capsule,delayed 20 mg PO PM 12/14/20 07/20/25 History release potassium chloride 10 mEq 10 meq PO .mwf #30 tabs 12/19/20 07/20/25 Rx tablet,extended release furosemide 20 mg tablet 20 mg PO MOTH 07/20/25 07/20/25 History macitentan 10 mg-tadalafil 40 mg 1 tab PO PM 07/20/25 07/20/25 History tablet (Opsynvi) spironolactone 25 mg tablet 12.5 mg PO MOTH 07/20/25 07/20/25 History tamsulosin 0.4 mg capsule 0.4 mg PO DAILY 07/20/25 07/20/25 History treprostinil sodium 79.5 mcg 1 cap inhalation Q4H 07/20/25 07/20/25 History capsule with inhalation device (Yutrepia) Past Med/Surg History Problem List KIRTI (acute kidney injury) (Acute) Elevated troponin (Acute) Thrombocytopenia (Acute) Hypomagnesemia (Acute) Pulmonary edema (Acute) Influenza A (Acute) Acute hypoxemic respiratory failure (Acute) Medical History Acute right-sided CHF (congestive heart failure) Meatal stenosis Urinary retention Acute on chronic respiratory failure with hypoxia Asthma Chronic respiratory failure with hypoxia Acute urinary retention KIRTI (acute kidney injury) Acute hypoxemic respiratory failure Pulmonary HTN Down syndrome Surgical History Status post atrioventricular septal defect repair History of heart surgery 1982: pulmonary artery banding and right lower lobectomy 1984: AVSD repair Family History Other Family history non-contributory Social History Smoking Status: Never smoker Hx Alcohol Use: No Hx Substance Use: No Preferred Language: Irish Communication Ability: Effective Technology Risk Intern Required: No Beliefs That Will Affect Care: None Current Living Situation: Parent Feels Safe at Home: Yes Assistive Devices: Glasses and Oxygen - Continuous Review of Systems Review of Systems: All systems reviewed & are unremarkable except as noted in HPI & below Physical Exam Physical Exam: constitutional: WD/WN +downs syndrome, vitals as above, NAD, sitting up in bed, pleasant, conversing easily Head: Normocephalic, Atraumatic Eyes: conjunctivae normal, anicteric sclerae ENMT: external ear and nose normal, oropharynx normal Neck: trachea midline, no thyromegaly normal visual inspection Respiratory: 2 L O2 CTAB, decreased BS RLL, normal inspection, no accessory muscle use Cardiovascular: RRR, no murmur, no edema Chest: normal inspection of chest Abdomen: S, NT, ND, +BS x 4 Musculoskeletal: no cyanosis or clubbing, extremities AROM x 4 Skin: no rashes, warm and dry normal turgor Neurologic: no face palsy, no dysarthria CN's II-XI intact bilaterally and moves all extremities Psychiatric: A+Ox3, euthymic affect Results & Data Results & Data Vital Signs (Past 12 Hours) Vital Signs Temp Pulse Pulse Resp BP BP Pulse Ox 07/20/25 11:56 37.6 C H 69 18 117/73 97 07/20/25 10:52 36.8 C 84 20 119/78 84 L O2 Del Method O2 Flow Rate 07/20/25 11:56 Nasal Cannula 2 07/20/25 10:52 Room Air Laboratory Results I have independently reviewed and interpreted patient's admitting labs including CBC, CMP, PTT, PT/INR, mag and troponin. Diagnostic Findings Chest X-Ray 07/20/25 11:04 SINGLE VIEW CHEST CLINICAL HISTORY: Dyspnea FINDINGS: An AP, portable, upright chest radiograph is compared to study dated 09/12/2021 and correlated with chest CT dated 07/11/2018. The patient is status p ost midline sternotomy. The heart is enlarged. There is pulmonary vascular congestion with mild interstitial edema. Trace pleural effusions are suspected with dependent airspace opacities. A right basilar opacity is unchanged and likely represents a fat-containing Bochdalek hernia when compared to prior chest CT. No pneumothorax is seen. The skeletal structures are osteopenic. The bony thorax is grossly intact. IMPRESSION: 1. Cardiomegaly with evidence of congestive failure and mild pulmonary edema. Correlate clinically for evidence of a superimposed infectious/inflammatory pneumonitis. Radiographic follow-up to resolution is recommended. 2. Small pleural effusions with dependent airspace opacities ACT 112: Negative or not required by law. Electronically signed by: Palmer Guzman M.D. 07/20/2025 11:59 AM Medications Administered Medication List Discontinued Medications Sodium Chloride (Nss) 500 mls @ 999 mls/hr IV .Q31M ONE Stop: 07/20/25 12: Last Admin: 07/20/25 12:04 Dose: 999 mls/hr Documented By: liliana Magnesium Sulfate/Dextrose (Magnesium Sulfate / D5w) 1 gm in 100 mls @ 100 mls/hr IV NOW STA Stop: 07/20/25 12:54 Last Admin: 07/20/25 12:04 Dose: 100 mls/hr Documented By: liliana ECG Additional Comments: I have independently reviewed and interpreted patient's admitting EKG which revealed: 70 NSR, T wave inversion III and AVF COVID-19 Results Results COVID-19 Adm Lab Results: RBC 3.67 M/uL (4.20-5.40) L 07/20/25 WBC 6.40 K/ul (4.8-10.8) 07/20/25 Hgb 11.9 g/dL (12.0-16.0) L 07/20/25 Hct 34.5 % (37.0-47.0) L 07/20/25 Plt Count 85 K/uL (130-400) L 07/20/25 Neutrophils (%) (Auto) 82.8 % 07/20/25 Lymphocytes (%) (Auto) 10.2 % 07/20/25 Monocytes # (Auto) 0.39 K/uL (0.11-0.59) 07/20/25 Eosinophils # (Auto) 0.00 K/uL (0.00-0.50) 07/20/25 Immature Granulocyte % (Auto) 0.6 % 07/20/25 Neutrophils # (Auto) 5.30 K/uL (1.40-6.50) 07/20/25 Lymphocytes # (Auto) 0.65 K/uL (1.20-3.40) L 07/20/25 Monocytes # (Auto) 0.39 K/uL (0.11-0.59) 07/20/25 Eosinophils # (Auto) 0.00 K/uL (0.00-0.50) 07/20/25 Basophils # (Auto) 0.02 K/uL (0.00-0.20) 07/20/25 Immature Granulocyte # (Auto) 0.04 K/uL (0.01-0.20) 5 Na 139 mmol/L (136-145) 07/20/25 K 3.8 mmol/L (3.5-5.1) 07/20/25 Cl 106 mmol/L (98-107) 07/20/25 CO2 25 mmol/L (21-32) 07/20/25 Anion Gap 8 (3-11) 07/20/25 BUN 32 mg/dl (6-23) H 07/20/25 Creatinine 1.80 mg/dl (0.6-1.2) H 07/20/25 BUN/Creatinine Ratio 17.8 (10-20) 07/20/25 Glucose Level 96 mg/dl (70-99(Fasting)) 07/20/25 Ca 8.7 mg/dl (8.6-10.3) 07/20/25 Total Bilirubin 0.4 mg/dl (0.2-1.0) 07/20/25 AST/SGOT 16 U/L (13-39) 07/20/25 ALT/SGPT 9 U/L (7-52) 07/20/25 Alkaline Phosphatase 57 U/L (34-104) 07/20/25 Total Protein 7.0 gm/dl (6.0-8.3) 07/20/25 Albumin 3.6 gm/dl (3.4-5.0) 07/20/25 Globulin 3.4 gm/dl (2.5-4.0) 07/20/25 Albumin/Globulin Ratio 1.1 (0.9-2) 07/20/25 Procalcitonin 0.51 ng/ml (0-0.5) H 07/20/25 INR 1.0 (0.9-1.1) 07/20/25 COVID-19 PCR NEGATIVE (Negative) 07/20/25 Influenza Virus Type A (PCR) Positive (Neg) A 07/20/25 Influenza Virus Type B (PCR) Negative (Neg) 07/20/25 Chest X-Ray 07/20/25 Code Status & VTE Plan Code Status FULL CODE VTE Prophylaxis Plan VTE Prophylaxis will be ordered: Yes Supervising Physician Co-Signing Physician Notes Patient seen and examined at bedside. Cough, SOB, fatigue for past few days. Has happened to her before. On exam, rhonchi throughout lungs bilaterally, no pitting edema in legs bilaterally. BNP WNL. Creatinine elevated in setting of KIRTI. Mg of 1.6 replenished. Procal elevated suggestive of overlying bacterial infection. Presentation consistent with influenza A infection with overlying CAP. High risk for pseudomonas co-infection given influenza and ILD. Start cefepime/doxy, keep patient euvolemic. Delicate fluid balance given comorbid conditions. Start IS and flutter valve. Check MRSA swab and sputum culture. I have seen and discussed the case with the collaborating advanced practitioner. I agree with the above H&P. I have reviewed and confirmed the patients medical history, the findings on physical examination, and the patients diagnosis and treatment plan with Julieth Botello PA-C and agree with the information documented. I spent a total of 30 minutes coordinating, documenting, and providing care for this patient excluding time spent in the performance of separately billed services. All of the aforementioned completed outside of collaborating with the assigned advanced practitioner for a full treatment plan. I have reviewed the advanced practitioner's documentation, and I agree with, and take responsibility for the plan of care
[2025-07-20] MEDS: ALBUTEROL 0.083% NEBU SOLN 3 ML VIAL NEB STA (14:04)
[2025-07-20] MEDS: cefTRIAXone SODIUM 2,000 MG/50 ML BAG IV STA (14:04)
[2025-07-20] MEDS: OSELTAMIVIR PHOSPHATE 30 MG CAP PO SCH (14:04)
[2025-07-20] MEDS: DOXYCYCLINE HYCLATE 100 MG CAP PO STA (14:04)
[2025-07-20] MEDS: FUROSEMIDE INJ 20 MG/2 ML VIAL IV ONE (14:04)
[2025-07-20 15:49] LABS: Appearance Urine Turbid (Clear); Bacteria Urine Automated None Seen (None Seen); Glucose Urine UA Negative (Negative); RBC Urine Automated 0-2 /hpf (0-2)
[2025-07-20] MEDS ORDERED: POLYETHYLENE (MIRALAX) 17 GM PACK PO PRN (16:10)
[2025-07-20] MEDS ORDERED: ALBUTEROL 0.083% NEBU SOLN 3 ML VIAL NEB PRN (16:10)
[2025-07-20] MEDS ORDERED: ONDANSETRON INJ 2 MG/ML 2 ML VIAL IV PRN (16:10)
--- NOTE | 2025-07-20 16:48 | Ultrasound Report ---
EXAM: US Retroperitoneal Limited Renal INDICATION: Acute renal density. TECHNIQUE: Real-time limited ultrasound of the retroperitoneum with image documentation. COMPARISON: CT abdomen 11/13/2021 FINDINGS: Right kidney: 13 cm long. Cortical thickness and echotexture maintained. No stones. No solid mass. Severe hydronephrosis. Left kidney: 16.7 cm long. Cortical thickness and echotexture maintained. No stones. No solid mass. Markedly severe hydronephrosis. Mild left perinephric fluid. Bladder: The bladder is distended to over 1000 cc and trabeculated. Ureteral jets not identified during the exam. Other findings: Incidental note made of gallbladder polyps. IMPRESSION: 1. Severe bilateral hydronephrosis left greater than right. 2. Markedly dilated trabeculated urinary bladder. 3. Incidental gallbladder polyps. ACT 112: N/A Electronically signed by Mary Jane Oglesby 07-20-2025 4:47 PM
--- NOTE | 2025-07-20 17:38 | Communication Note ---
Date of Service: July 20, 2025 Results of Renal US Reviewed with patient and father at bedside US: IMPRESSION: 1. Severe bilateral hydronephrosis left greater than right. 2. Markedly dilated trabeculated urinary bladder. Discussed recommendation of placing shaw cath given severe hydronephrosis and KIRTI. Mr. Anderson was visibly upset reporting last time this happened he was very unhappy with her care. Mr. Anderson does not wish to have a shaw cath placed until he discusses further with her primary urologist Dr. Sandhu. Risks of this was discussed. Pt with complicated cath insertion in setting of meatal stenosis previously requiring a 12F. Known Chronic MERAZ. Will attempt to reach out to her primary urologist from [facility]. Gricel Botello PA-C
--- NOTE | 2025-07-20 18:21 | XCELERA ---
[id number]
--- NOTE | 2025-07-20 18:52 | Electrocardiogram Report ---
Test Reason : Blood Pressure : */* mmHG Vent. Rate : 70 BPM Atrial Rate : 70 BPM P-R Int : 118 ms QRS Dur : 72 ms QT Int : 358 ms P-R-T Axes : 17 83 -9 degrees QTcB Int : 386 ms Normal sinus rhythm T wave abnormality, consider inferior ischemia Abnormal ECG When compared with ECG of 12-Sep-2021 12:51, QRS axis Shifted left Confirmed by Neymar Saldivar ([id number]) on 07/20/2025 6:51:51 PM Referred By: Confirmed By: Neymar Saldivar
[2025-07-20] MEDS: HEPARIN SOD 5,000 UNIT/0.5 ML VIAL SQ SCH (20:18)
[2025-07-20] MEDS: DOXYCYCLINE HYCLATE 100 MG CAP PO SCH (20:22)
[2025-07-20] MEDS: CEFEPIME 2000MG 2,000 MG/20 ML SYR IV ONE (20:22)
[2025-07-20] MEDS: guaiFENesin 600 MG TABCR PO SCH (20:22)
[2025-07-20] MEDS: ALBUTEROL 0.083% NEBU SOLN 3 ML VIAL NEB SCH (20:57)
[2025-07-20] MEDS: LORazepam 1 MG TAB PO STA (21:03)
[2025-07-21 07:22] LABS: Hematocrit (blood only) 34.4 % (37.0-47.0); Hemoglobin 11.6 g/dL (12.0-16.0); Immature Granulocytes # (auto) 0.02 K/uL (0.01-0.20); Immature Granulocytes % (auto) 0.3 %; Mean Corpuscular Hemoglobin 32.0 pg (25.0-34.0); Mean Corpuscular Volume 95.0 fL (80.0-100.0); Platelet Count 84 K/uL (130-400); RDW Standard Deviation 50.9 fL (36.4-46.3); Red Blood Count 3.62 M/uL (4.20-5.40); White Blood Count 5.84 K/ul (4.8-10.8)
[2025-07-21 08:13] LABS: Alanine Aminotransferase 8.0 U/L (7-52); Albumin Globulin Ratio 1.0 (0.9-2); Albumin Level 3.4 gm/dl (3.4-5.0); Alkaline Phosphatase 58.0 U/L (34-104); Anion Gap 9.0 (3-11); Bilirubin,Total 0.3 mg/dl (0.2-1.0); Blood Urea Nitrogen 30.0 mg/dl (6-23); Calcium 8.2 mg/dl (8.6-10.3); Carbon Dioxide 24.0 mmol/L (21-32); Chloride 110.0 mmol/L (98-107); Creatinine Clr Calc Pharmacy 24.0 ml/min; Globulin 3.3 gm/dl (2.5-4.0); Glucose 82.0 mg/dl (70-99(Fasting)); Magnesium 1.7 mg/dl (1.7-2.4); Potassium 3.5 mmol/L (3.5-5.1); Sodium 143.0 mmol/L (136-145); Total Protein 6.7 gm/dl (6.0-8.3)
[2025-07-21] MEDS: ADVANCED PROBIOTIC 625 MG CAPSULE PO SCH (08:31)
[2025-07-21] MEDS: TAMSULOSIN HCL 0.4 MG CAP PO SCH (08:31)
[2025-07-21] MEDS: MULTIVITAMIN TAB PO SCH (08:31)
[2025-07-21] MEDS: FLUTICASONE FUROATE 100MCG 14 PUFFS/INHALER INH SCH (08:31)
[2025-07-21] MEDS: OSELTAMIVIR PHOSPHATE 30 MG CAP PO SCH (08:31)
[2025-07-21] MEDS: POTASSIUM CHLORIDE 10 MEQ TABCR PO SCH (08:31)
[2025-07-21] MEDS: CEFEPIME 1000MG 1,000 MG/10 ML SYR IV SCH (08:32)
--- NOTE | 2025-07-21 09:14 | Urology Consultation ---
Date of Consultation July 20, 2025 Assessment & Plan (1) KIRTI (acute kidney injury): 44F with urinary retention and difficult shaw placement due to intellectual impairment and urethral stenosis eventually able to place catheter and now draining clear urine. - given trauma related to placement would maintain catheter pending outpatient assessment Dr. Sandhu - reccomend bowel regimen for soft daily BM (2) Urinary retention: History of Present Illness Reason for Consultation: urinary retention with bladder scan showing 1L, b/l HUN, difficult shaw placement due to urethral stenosis Attending Physician: Paulino Acuna MD History of Present Illness 44F intellectually impaired with down syndrome seen with father who provides elements of history patient with longstanding urinary difficulties and reported urethral stenosis follows with Dr. Sandhu of [facility], noted to be acutely uncomfortable unable to void with 1L in bladder and b/l hydro also with KIRTI, shaw placement by urology requested as traumatic to patient and difficult in past. Admitted for management hypoxia and respiratory infection. Gen: Anxious uncomfortable Abd: tender distended sp region : normal female anatomy with exception of narrowed urethra, accommodated 12 fr catheter with some difficulty, patient very uncomfortable with process given 1 mg ativan prior which may have helped some, clear urine returned and catheter secured Allergies Allergy/AdvReac Type Severity Reaction Status Date / Time Sulfa (Sulfonamide Allergy Unknown ` Verified 12/14/20 11:24 Antibiotics) Home Medications Medication Instructions Recorded Confirmed Type multivitamin 1 tab PO QAM 07/10/18 07/20/25 History acetaminophen 325 mg capsule 650 mg (2 x 325 mg) PO Q4H PRN 07/14/18 07/20/25 Rx Fever Or Pain #100 caps albuterol sulfate 90 mcg/actuation 2 puffs inhalation Q6H PRN 07/14/18 07/20/25 Rx aerosol inhaler shortness of breath or wheezing #8 grams omeprazole 20 mg capsule,delayed 20 mg PO PM 12/14/20 07/20/25 History release potassium chloride 10 mEq 10 meq PO .mwf #30 tabs 12/19/20 07/20/25 Rx tablet,extended release fluticasone furoate 100 100 mcg inhalation DAILY 07/20/25 07/20/25 History mcg/actuation blister powder for inhalation (Arnuity Ellipta) furosemide 20 mg tablet 20 mg PO MOTH 07/20/25 07/20/25 History macitentan 10 mg-tadalafil 40 mg 1 tab PO PM 07/20/25 07/20/25 History tablet (Opsynvi) spironolactone 25 mg tablet 12.5 mg PO MOTH 07/20/25 07/20/25 History tamsulosin 0.4 mg capsule 0.4 mg PO DAILY 07/20/25 07/20/25 History treprostinil sodium 79.5 mcg 1 cap inhalation Q4H 07/20/25 07/20/25 History capsule with inhalation device (Yutrepia) Patient History Medical History Acute right-sided CHF (congestive heart failure) Meatal stenosis Urinary retention Acute on chronic respiratory failure with hypoxia Asthma Chronic respiratory failure with hypoxia Acute urinary retention KIRTI (acute kidney injury) Acute hypoxemic respiratory failure Pulmonary HTN Down syndrome Surgical History Status post atrioventricular septal defect repair History of heart surgery 1982: pulmonary artery banding and right lower lobectomy 1984: AVSD repair Family History Other Family history non-contributory Social History Smoking Status: Never smoker Hx Alcohol Use: No Hx Substance Use: No Preferred Language: Turkmen Communication Ability: Effective Director Of Medicare Required: No Beliefs That Will Affect Care: None Current Living Situation: Family Current Living Situation Comment: lives with father and father's fiance Feels Safe at Home: Yes Assistive Devices: Glasses Results & Data Vital Signs (Past 12 Hours) Vital Signs Temp Pulse Pulse Resp BP BP Pulse Ox 07/21/25 08:49 07/21/25 08:42 37.1 C 76 16 97/59 L 97 07/21/25 07:16 63 16 97 07/21/25 05:55 73 07/21/25 03:30 37.1 C 76 18 104/69 94 07/20/25 23:10 37.4 C 77 18 103/58 L 91 07/20/25 22:08 75 O2 Del Method O2 Flow Rate 07/21/25 08:49 Nasal Cannula 2 07/21/25 08:42 Nasal Cannula 2 07/21/25 07:16 Nasal Cannula 2 07/21/25 05:55 07/21/25 03:30 Nasal Cannula 2 07/20/25 23:10 Nasal Cannula 2 07/20/25 22:08 PG Care Time/CCT Total # of Minutes Spent Total Time Spent with Patient: Total time spent is greater than 50% in coordination of care (as documented) at patient's floor/unit and/or counseling patient: Coding Level of Care Code 15402 IN/OBS CONSULT LVL 4,60M Diagnoses KIRTI (acute kidney injury) N17.9 Urinary retention R33.9
--- NOTE | 2025-07-21 09:43 | Urology Progress Note ---
<Statement entered by Warren Collier MD - 07/22/25 09:57> Chart reviewed plan reviewed and agree as written. Date of Service July 21, 2025 Assessment & Plan (1) Urinary retention: (2) KIRTI (acute kidney injury): Plan 44yo female with urinary retention and difficult Shaw placement due to intellectual impairment and urethral stenosis. Afebrile, hemodynamically stable. WBCs 5.84, Creatinine 2.09. Continue to trend. Urine culture prelim with Strep agalactiae, follow culture. 12Fr Shaw placed yesterday by Dr. Collier. Shaw catheter draining appropriately, urine is clear yellow. Recommend maintaining Shaw catheter until outpatient assessment by her primary urologist Dr. Sandhu of [facility] urology. Urology will sign off, please recall as needed. Admission and Anticipated Discharge Date Admission Date: July 20, 2025 Subjective Pt seen at bedside this morning. NAD. Nurse at bedside. Shaw intact and draining clear yellow urine. Patient had ~ 2L output overnight. Review of Systems Constitutional: as per Subjective / HPI Genitourinary: as per Subjective / HPI Physical Exam Constitutional: no acute distress Respiratory: no respiratory distress Genitourinary: shaw intact and draining clear yellow urine Results & Data Vital Signs (Past 12 Hours) Vital Signs Temp Pulse Pulse Resp BP BP Pulse Ox 07/21/25 08:49 07/21/25 08:42 37.1 C 76 16 97/59 L 97 07/21/25 07:16 63 16 97 07/21/25 05:55 73 07/21/25 03:30 37.1 C 76 18 104/69 94 07/20/25 23:10 37.4 C 77 18 103/58 L 91 07/20/25 22:08 75 O2 Del Method O2 Flow Rate 07/21/25 08:49 Nasal Cannula 2 07/21/25 08:42 Nasal Cannula 2 07/21/25 07:16 Nasal Cannula 2 07/21/25 05:55 07/21/25 03:30 Nasal Cannula 2 07/20/25 23:10 Nasal Cannula 2 07/20/25 22:08 PG Care Time/CCT Total # of Minutes Spent Total Time Spent with Patient: Total time spent is greater than 50% in coordination of care (as documented) at patient's floor/unit and/or counseling patient: Coding Level of Care Code 77077 SUB INP/OBS CARE 08/22MIN Diagnoses Urinary retention R33.9 KIRTI (acute kidney injury) N17.9
[2025-07-21] MEDS: ACETAMINOPHEN 325 MG TAB PO PRN (09:48)
[2025-07-21] MEDS ORDERED: cefTRIAXone SODIUM 2,000 MG/50 ML BAG IV SCH ×2 (13:30→14:00)
--- NOTE | 2025-07-21 14:53 | Hospitalist Progress Note ---
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 She was hypoxic prior to arrival with O2 in the 70s on RA, pt uses 2.5 L NC O2 HS per pt's father. Influenza A URTI Probable right lower lobe pneumonia Hypoxia: At presentation secondary to above, no mention of respiratory distress at presentation. Continue with tamsulosin 07/20 and continue with cefepime and doxycycline 07/20. Patient feels tired, reports minimal improvement in her cough, has been afebrile in the hospital. Continue supplemental oxygen, wean as tolerated. nebs, incentive spirometry, muccinex, sputum cx was sent. Continue with supportive care. Demand ischemia: Troponin flat trend in 20s, likely secondary to acute illness. Patient denies chest pain. Echo with EF of 60 to 65%, LV normal in size and normal systolic function. Acute kidney injury: Baseline creatinine WNL, admitting creatinine of 1.8, likely in the setting of obstructive uropathy. Renal ultrasound with severe bilateral hydronephrosis left greater than right. Urology on board, Bernal catheter in place, patient draining urine, creatinine slightly up trended today, will continue to follow. If worsening, consider nephrology consult. Urology evaluated, recommends continuing with Bernal catheter and following up with urology as an outpatient. Lasix and Aldactone on hold for now. Thrombocytopenia: Likely secondary to acute illness, continue to monitor. Gallbladder polyp: Incidental finding in renal ultrasound, will get dedicated gallbladder ultrasound, patient will need GI and general surgery follow-up as an outpatient. Patient's father and patient made aware. Possible UTI: UCx w/ strep agalactiae. pt on atb as above. Other chronic medical conditions: Continue with/resume home meds as and when able. Chronic HFpEF, Rt heart failure, pulmonary hypertension: Continue home Lasix, Aldactone. History of VSD closure, interstitial lung disease: Per patient's father they follow-up with pulmonary hypertension specialist at [place]. DVT prophylaxis: Subcu heparin Full code Admission and Anticipated Discharge Date Admission Date: July 20, 2025 Subjective Patient was seen and examined at bedside. Patient was lying in bed, on 2 L oxygen via nasal cannula, resting comfortably, sleeping, woke up to exam. Patient's father at bedside who was also updated on plan of care. Patient reports feeling tired, patient's father reports he has not had cough since morning. We discussed about incidental finding of gallbladder polyp, patient's father s tated that he is not interested in any surgery immediately (even if indicated) but I suggested he be in touch with GI and general surgery as an outpatient which he agreed to. Physical Exam Physical Exam: GENERAL: sleepy, woke up to exam. NAD, on 2L NC O2. HEENT: No pallor, no icterus. Pupils equal, round and reactive to light. Oral mucosa moist. NECK: No JVD, no neck masses. HEART: S1 and S2 heard. Regular rate and rhythm. No murmur, no gallop. RESPIRATORY SYSTEM: Normal AP diameter. No accessory muscle use. No wheezing, no crackles. ABDOMEN: Soft, bowel sounds present, nontender, no distention. CENTRAL NERVOUS SYSTEM: No facial droop. Speech is clear. Obeys simple commands. Moves extremities. EXTREMITIES: No edema, no erythema seen. UC w/ light yellow urine in bag. Results & Data Results & Data Vital Signs (Past 12 Hours) Vital Signs Temp Pulse Pulse Resp BP BP Pulse Ox 07/21/25 14:01 64 07/21/25 08:49 07/21/25 08:42 37.1 C 76 16 97/59 L 97 07/21/25 07:16 63 16 97 07/21/25 05:55 73 07/21/25 03:30 37.1 C 76 18 104/69 94 O2 Del Method O2 Flow Rate 07/21/25 14:01 07/21/25 08:49 Nasal Cannula 2 07/21/25 08:42 Nasal Cannula 2 07/21/25 07:16 Nasal Cannula 2 07/21/25 05:55 07/21/25 03:30 Nasal Cannula 2
--- NOTE | 2025-07-21 16:11 | Ultrasound Report ---
EXAM: US Abdomen Limited Right Upper Quadrant INDICATION: Follow-up. TECHNIQUE: Real-time ultrasound of the right upper quadrant with image documentation. COMPARISON: Renal ultrasound with incidental gallbladder findings yesterday. FINDINGS: Liver: Normal shape and size. 1.8 x 1.3 x 1.4 cm slightly hyperechoic area posterior to the gallbladder possibly hemangioma. Gallbladder: The gallbladder is incompletely distended. There are 3 adherent soft tissue nodules likely polyps present 2 of which measures 6 mm and the other 2 mm. Common bile duct: No acute abnormality noted. No stones. No dilation. Pancreas: No acute abnormality noted. Right kidney: No dedicated imaging although hydronephrosis is again noted. IMPRESSION: 1. Gallbladder polyps measuring up to 6 mm. Yearly sonographic surveillance suggested. 2. Probable hemangioma in the liver. If there is a known primary malignancy, metastatic disease should be excluded. 3. Right hydronephrosis. ACT 112: N/A Electronically signed by Mary Jane Oglesby 07-21-2025 4:11 PM
[2025-07-22 08:19] LABS: Hematocrit (blood only) 33.5 % (37.0-47.0); Hemoglobin 11.5 g/dL (12.0-16.0); Mean Corpuscular Hemoglobin 32.5 pg (25.0-34.0); Mean Corpuscular Volume 94.6 fL (80.0-100.0); Platelet Count 86 K/uL (130-400); RDW Standard Deviation 51.5 fL (36.4-46.3); Red Blood Count 3.54 M/uL (4.20-5.40); White Blood Count 2.91 K/ul (4.8-10.8)
[2025-07-22 08:33] LABS: Anion Gap 6.0 (3-11); Blood Urea Nitrogen 29.0 mg/dl (6-23); Calcium 8.1 mg/dl (8.6-10.3); Carbon Dioxide 26.0 mmol/L (21-32); Chloride 108.0 mmol/L (98-107); Creatinine Clr Calc Pharmacy 28.3 ml/min; Glucose 91.0 mg/dl (70-99(Fasting)); Potassium 4.1 mmol/L (3.5-5.1); Sodium 140.0 mmol/L (136-145)
[2025-07-22] MEDS ORDERED: SPIRONOLACTONE 12.5 MG TAB PO SCH (09:00)
--- NOTE | 2025-07-22 13:00 | Hospitalist Progress Note ---
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 She was hypoxic prior to arrival with O2 in the 70s on RA, pt uses 2.5 L NC O2 HS per pt's father. Influenza A URTI Probable right lower lobe pneumonia Hypoxia: At presentation secondary to above, no mention of respiratory distress at presentation. Continue with tamsulosin 07/20 and continue with cefepime and doxycycline 07/20. Patient feels tired, reports minimal improvement in her cough, episodes of low grade fever noted. Continue supplemental oxygen, wean as tolerated. nebs, incentive spirometry, muccinex, sputum cx was sent. Continue with supportive care. Demand ischemia: Troponin flat trend in 20s, likely secondary to acute illness. Patient denies chest pain. Echo with EF of 60 to 65%, LV normal in size and normal systolic function. Acute kidney injury: Baseline creatinine WNL, admitting creatinine of 1.8, likely in the setting of obstructive uropathy. Renal ultrasound with severe bilateral hydronephrosis left greater than right. Urology evaled, recommends continuing with Bernal catheter and following up with urology as an outpatient. Cr improving trend, continue to hold Lasix and Aldactone on hold for now. Thrombocytopenia: Likely secondary to acute illness, continue to monitor. Gallbladder polyp: Incidental finding in renal ultrasound, GB US w/ GB polyps x 3 (6mm, 6mm, 2mm) and probable hemangioma in the liver. Pt's father has been made aware and advised to f/u GI as OP. Possible UTI: UCx w/ strep agalactiae. pt on atb as above. Other chronic medical conditions: Continue with/resume home meds as and when able. Chronic HFpEF, Rt heart failure, pulmonary hypertension: Continue home Lasix, Aldactone. History of VSD closure, interstitial lung disease: Per patient's father they follow-up with pulmonary hypertension specialist at [place]. DVT prophylaxis: Subcu heparin Full code Admission and Anticipated Discharge Date Admission Date: July 20, 2025 Subjective Patient was seen and examined at bedside. Patient was sitting up in bed, eating breakfast, on 2 L oxygen via nasal cannula, resting comfortably. Pt reports cough, it is wet in nature, no sputum. Pt feels still tired/weak. Physical Exam Physical Exam: GENERAL: sleepy, woke up to exam. NAD, on 2L NC O2. HEENT: No pallor, no icterus. Pupils equal, round and reactive to light. Oral mucosa moist. NECK: No JVD, no neck masses. HEART: S1 and S2 heard. Regular rate and rhythm. No murmur, no gallop. RESPIRATORY SYSTEM: Normal AP diameter. No accessory muscle use. No wheezing, occ bb crackles. ABDOMEN: Soft, bowel sounds present, nontender, no distention. CENTRAL NERVOUS SYSTEM: No facial droop. Speech is clear. Obeys simple commands. Moves extremities. EXTREMITIES: No edema, no erythema seen. UC w/ light yellow urine in bag. Results & Data Results & Data Vital Signs (Past 12 Hours) Vital Signs Temp Pulse Pulse Resp BP Pulse Ox O2 Del Method 07/22/25 11:15 37.8 C H 68 18 106/64 97 Nasal Cannula 07/22/25 08:28 Nasal Cannula 07/22/25 08:12 53 L 07/22/25 07:41 56 L 16 97 Nasal Cannula 07/22/25 03:52 36.6 C 62 16 101/57 L 94 Room Air O2 Flow Rate 07/22/25 11:15 2 07/22/25 08:28 2 07/22/25 08:12 07/22/25 07:41 2 07/22/25 03:52
[2025-07-22 23:23] VITALS: RESP 18
[2025-07-23 07:08] LABS: Hematocrit (blood only) 35.2 % (37.0-47.0); Hemoglobin 11.8 g/dL (12.0-16.0); Mean Corpuscular Hemoglobin 32.1 pg (25.0-34.0); Mean Corpuscular Volume 95.7 fL (80.0-100.0); Platelet Count 105 K/uL (130-400); RDW Standard Deviation 51.2 fL (36.4-46.3); Red Blood Count 3.68 M/uL (4.20-5.40); White Blood Count 3.59 K/ul (4.8-10.8)
[2025-07-23 07:29] VITALS: TEMP 98.2
[2025-07-23 07:30] LABS: Anion Gap 6.0 (3-11); Blood Urea Nitrogen 26.0 mg/dl (6-23); Calcium 7.8 mg/dl (8.6-10.3); Carbon Dioxide 27.0 mmol/L (21-32); Chloride 108.0 mmol/L (98-107); Creatinine Clr Calc Pharmacy 33.1 ml/min; Glucose 89.0 mg/dl (70-99(Fasting)); Potassium 4.2 mmol/L (3.5-5.1); Sodium 141.0 mmol/L (136-145)
[2025-07-23] MEDS ORDERED: CEFEPIME 2000MG 2,000 MG/20 ML SYR IV SCH (09:00)
[2025-07-23] MEDS: OSELTAMIVIR PHOSPHATE 30 MG CAP PO SCH (09:02)
[2025-07-23] MEDS: FLUTICASONE PROPIONATE NA SPR 16 GM BTL SCH (10:43)
[2025-07-23] MEDS: CEFEPIME 1000MG 1,000 MG/10 ML SYR IV ONE (11:19)
--- NOTE | 2025-07-23 12:36 | Discharge Summary ---
Date of Service July 23, 2025 Admission HPI Per Admitting Provider This is a 44-year-old female who has a significant past medical history of Down syndrome, chronic HFpEF, interstitial lung disease, pulmonary hypertension, asthma, history of VSD closure, history of pulmonary artery band and GERD who presents to ED secondary to ill feeling x 2 days. She is present with her father. History obtained from ED provider, external chart review, patient and father. She reports rhinorrhea starting 2 days ago. Yesterday she developed a productive cough of clear phlegm," feeling of a frog in her throat," congestion, elevated temp of 100 and shortly after breakfast developed SOB and low oxygen. Her O2 sats were as low at 75% per family. No sick contacts. She only goes out 2x a week for lunch. Denies dizziness, lightheaded, chest pain, hemopytsis, n/v/d, abd pain. She has been having normal bowel habits. She does have urinary frequency for which she follows urology. This is chronic for her. In ED she was requiring 2L of O2. She tested + for flu. Admission Exam Per Admitting Provider constitutional: WD/WN +downs syndrome, vitals as above, NAD, sitting up in bed, pleasant, conversing easily Head: Normocephalic, Atraumatic Eyes: conjunctivae normal, anicteric sclerae ENMT: external ear and nose normal, oropharynx normal Neck: trachea midline, no thyromegaly normal visual inspection Respiratory: 2 L O2 CTAB, decreased BS RLL, normal inspection, no accessory muscle use Cardiovascular: RRR, no murmur, no edema Chest: normal inspection of chest Abdomen: S, NT, ND, +BS x 4 Musculoskeletal: no cyanosis or clubbing, extremities AROM x 4 Skin: no rashes, warm and dry normal turgor Neurologic: no face palsy, no dysarthria CN's II-XI intact bilaterally and moves all extremities Psychiatric: A+Ox3, euthymic affect Principal Diagnosis Influenza A URTI Probable right lower lobe pneumonia Hypoxia Acute kidney injury Thrombocytopenia Gallbladder polyp Possible UTI Discharge Exam GENERAL: sleepy, woke up to exam. NAD, on 2L NC O2. HEENT: No pallor, no icterus. Pupils equal, round and reactive to light. Oral mucosa moist. NECK: No JVD, no neck masses. HEART: S1 and S2 heard. Regular rate and rhythm. No murmur, no gallop. RESPIRATORY SYSTEM: Normal AP diameter. No accessory muscle use. No wheezing, occ bb crackles, improved. ABDOMEN: Soft, bowel sounds present, nontender, no distention. CENTRAL NERVOUS SYSTEM: No facial droop. Speech is clear. Obeys simple commands. Moves extremities. EXTREMITIES: No edema, no erythema seen. UC w/ light yellow urine in bag. Discharge Data Allergies Allergy/AdvReac Type Severity Reaction Status Date / Time Sulfa (Sulfonamide Allergy Unknown ` Verified 12/14/20 11:24 Antibiotics) Consultations 07/20/25 12:33 ED Decision to Admit Stat 07/20/25 18:20 Consult Urology Routine Ordered Studies 07/20/25 13:21 US Renal Bladder [US renal/blad retro comp] Stat 07/21/25 08:33 US GB [US gallbladder] Routine Hospital Course (1) Influenza A: (2) Hypomagnesemia: (3) Thrombocytopenia: (4) Elevated troponin: (5) KIRTI (acute kidney injury): Plan 44-year-old female who has a significant past medical history of Down syndrome, chronic HFpEF, interstitial lung disease, pulmonary hypertension, asthma, history of VSD closure, history of pulmonary artery band and GERD who presents to ED secondary to 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 She was hypoxic prior to arrival with O2 in the 70s on RA, pt uses 2.5 L NC O2 HS per pt's father. Influenza A URTI Probable right lower lobe pneumonia Hypoxia: At presentation secondary to above, no mention of respiratory distress at presentation. Continue with tamsulosin 07/20 and continue with cefepime and doxycycline 07/20. Patient feels tired, reports minimal improvement in her cough, episodes of low grade fever noted. Continue supplemental oxygen, wean as tolerated. nebs, incentive spirometry, muccinex, sputum cx was sent. Continue with supportive care. 2 step test ordered, d/w CM re: arrangement of additional home O2. Pt already on O2, requalifying, CM assisting. Demand ischemia: Troponin flat trend in 20s, likely secondary to acute illness. Patient denies chest pain. Echo with EF of 60 to 65%, LV normal in size and normal systolic function. Acute kidney injury: Baseline creatinine WNL, admitting creatinine of 1.8, likely in the setting of obstructive uropathy. Renal ultrasound with severe bilateral hydronephrosis left greater than right. Urology evaled, recommends continuing with Bernal catheter and following up with urology as an outpatient. Cr improving trend, continue to hold Lasix and Aldactone on hold for now. Pt's father made aware as to when to resume them and have close f/u with PCP and urology. Thrombocytopenia: Likely secondary to acute illness, continue to monitor. Gallbladder polyp: Incidental finding in renal ultrasound, GB US w/ GB polyps x 3 (6mm, 6mm, 2mm) and probable hemangioma in the liver. Pt's father has been made aware and advised to f/u GI as OP. Possible UTI: UCx w/ strep agalactiae. pt on atb as above. Other chronic medical conditions: Continue with/resume home meds as and when able. Chronic HFpEF, Rt heart failure, pulmonary hypertension: Continue home Lasix, Aldactone. History of VSD closure, interstitial lung disease: Per patient's father they follow-up with pulmonary hypertension specialist at [place]. DVT prophylaxis: Subcu heparin Full code Patient is being discharged to home with following instructions at the point of discharge: Follow-up with your primary care physician within a week time and likely you will need labs CBC/CMP/magnesium/phosphorus. You are diagnosed with influenza A upper respiratory infection, possible right lower lobe pneumonia and resulting hypoxia. You will be discharged on Tamiflu and antibiotic to complete the course of treatment. You will also need oxygen briefly for several days during the daytime to help with hypoxia due to above infections. You were also noted to have acute kidney injury, your Lasix and Aldactone has been on hold. Start your Lasix from 07/25 and Aldactone from 07/27. You will need to be evaluated by your PCP with a lab test within a week time to make sure your kidney functions are improving. As discussed at the bedside, you are also noted to have gallbladder polyp and possible hemangioma in the liver. I recommend that you follow-up with GI as an outpatient. Coordinate with your PCP office to set up the referral. You are also noted to have possible UTI. The above antibiotic should take care of it. You will be discharged with Bernal catheter, set up an appointment with urology in a week time upon discharge. Take your medications as prescribed Please make sure that you are able to get your medications today by calling your pharmacy before you leave the hospital so that your treatment continuity is not broken. Home Health Attestation I certify that this patient is under my care and that I, or a physicians patient services assistant working with me, had a face to-face encounter that meets the home health [id number] encounter requirements with this patient. The encounter with the patient was in whole, or in part, for the following medical condition, which is the primary reason for home health care (list medical condition): I certify that, based on my findings, the following services are medically necessary home health services: My clinical findings support the need for the above services because: Further, I certify that my clinical findings support that this patient is homebound (i.e. absences from home require considerable and taxing effort and are for medical reasons or faith services or infrequently or of short duration when for other reasons) because: Certification for Home Health Services: Based on the above findings, I certify that this patient is confined to the home and needs intermittent group home care, physical therapy and/or speech therapy or continues to need occupational therapy. The patient is under my care, and I have initiated the establishment of the plan of care. This patient will be followed by a physician who will periodically review the plan of care. Total Time Total Time Spent Total Time Spent (In Minutes): 40 Discharge Plan Discharge Items Patient Disposition: Home - Self-Care Reason For Visit: INFLUENZA A, HYPOXIA, ILD Discharge Diagnosis: Influenza A URTI Probable right lower lobe pneumonia Hypoxia Acute kidney injury Thrombocytopenia Gallbladder polyp Possible UTI Condition on Discharge: Fair Activity: Resume your previous activity Non-emergency contact: Primary Care Provider Call non-emergency contact if: you have any medication questions and your sympto ms worsen Follow-up/Referrals: Lv Michaels MD [Primary Care Provider] - Diet: Heart Healthy and Low Sodium (2gm) Addtl Attending Provider Instructions: Follow-up with your primary care physician within a week time and likely you will need labs CBC/CMP/magnesium/phosphorus. You are diagnosed with influenza A upper respiratory infection, possible right lower lobe pneumonia and resulting hypoxia. You will be discharged on Tamiflu and antibiotic to complete the course of treatment. You will also need oxygen briefly for several days during the daytime to help with hypoxia due to above infections. You were also noted to have acute kidney injury, your Lasix and Aldactone has been on hold. Start your Lasix from 07/25 and Aldactone from 07/27. You will need to be evaluated by your PCP with a lab test within a week time to make sure your kidney functions are improving. As discussed at the bedside, you are also noted to have gallbladder polyp and possible hemangioma in the liver. I recommend that you follow-up with GI as an outpatient. Coordinate with your PCP office to set up the referral. You are also noted to have possible UTI. The above antibiotic should take care of it. You will be discharged with Bernal catheter, set up an appointment with urology in a week time upon discharge. Take your medications as prescribed Please make sure that you are able to get your medications today by calling your pharmacy before you leave the hospital so that your treatment continuity is not broken. Pending Studies at Discharge: No Stand-Alone Forms: My [facility] Fit&Color, Smoking Cessation Medications and DC Order Prescriptions: New doxycycline hyclate 100 mg Capsule 100 mg PO BID 3 Days Qty: 6 0RF oseltamivir 30 mg Capsule 30 mg PO BID 2 Days Qty: 4 0RF fluticasone propionate 50 mcg/actuation [place],Suspension 2 spray NA DAILY 10 Days Qty: 16 0RF guaifenesin [Mucinex] 600 mg Tablet Extended Release 12hr 1,200 mg PO Q12 7 Days Qty: 28 0RF Advanced Probiotic 625 mg (10 billion cell) Capsule 1 cap PO DAILY 7 Days Qty: 7 0RF cefdinir 300 mg capsule 300 mg PO BID 4 Days Qty: 8 0RF Continued multivitamin Tablet,Chewable 1 tab PO QAM acetaminophen 325 mg capsule 650 mg PO Q4H PRN (Reason: Fever Or Pain) Qty: 100 0RF albuterol sulfate 90 mcg/actuation HFA aerosol inhaler 2 puffs INH Q6H PRN (Reason: shortness of breath or wheezing) Qty: 8 0RF omeprazole 20 mg capsule,delayed release(DR/EC) 20 mg PO PM Opsynvi 10-40 mg tablet 1 tab PO PM Yutrepia 79.5 mcg capsule, w/inhalation device 1 cap INHALATION Q4H Rx Instructions: 0830, 1230, 1630, 2030 tamsulosin 0.4 mg capsule 0.4 mg PO DAILY fluticasone furoate [Arnuity Ellipta] 100 mcg/actuation blister with device 100 mcg INHALATION DAILY Held potassium chloride 10 mEq tablet extended release 10 meq PO .mwf Qty: 30 0RF Hold Instructions: Resume on 07/25/25. Rx Instructions: On Saturday, Saturday, Saturday ( on day lasix given only) spironolactone 25 mg tablet 12.5 mg PO MOTH Hold Instructions: Resume on 07/27/25. furosemide 20 mg tablet 20 mg PO MOTH Hold Instructions: Resume on 07/25/25. Discharge Orders: Discharge Order (Routine); Ordered 07/23/25 Ordered By: Paulino Acuna Admission Data Admit Date/Time: 07/20/25 12:42 Attending Provider: Paulino Acuna Admit Provider: Stanford Gonzalez Primary Care Provider: Lv Michaels Other Providers: Stanford Gonzalez; Warren Collier
[2025-07-23 12:55] VITALS: BP 104/69
[2025-07-23 13:08] VITALS: PULSE 76; O2SAT 86
== END 2025-07-23 13:57 | disposition home or self-care (01) | DRG 193 ==
LOC: ED 10:51 → EDINP 12:42 → SUATTDRO 12:42 → 2N 18:04